=== PATIENT | female | born 1950 | race Two or more races ===

== ENCOUNTER 2020-01-27 07:42 | Inpatient (IN) | payer MEDICARE, MEDICAID ==
[~2020-01-27] VITALS: Ht 154.9 cm; Wt 85.0 kg
[2020-01-27] MEDS ORDERED: SODIUM CHLORIDE 0.9% 1,000 ML IV ONE ×2 (07:48)
[2020-01-27 07:52] VITALS: BP 95/45
[2020-01-27] MEDS ORDERED: ZINC SULFATE 220mg CAP or TAB PO ONE (08:00)
[2020-01-27] MEDS ORDERED: ASCORBIC ACID 500 MG TAB PO ONE (08:00)
[2020-01-27] MEDS ORDERED: cefTRIAXone 1GM/50ML D5W 50 ML IV ONE (08:00)
[2020-01-27 08:30] LABS: Basophils # (auto) 0 10 ^3/uL (0-0.2); Basophils % (auto) 0.2 % (0.0-2.0); Eosinophils # (auto) 0 10 ^3/uL (0-0.8); Hematocrit 40.3 % (36.0-46.0); Hemoglobin 13.2 g/dL (12.2-16.2); Lymphocytes # (auto) 0.6 10 ^3/uL (0.4-5.4); Lymphocytes % (auto) 5.1 % (10.0-50.0); Mean Corpuscular Hemoglobin 28.4 pg (28.0-32.0); Mean Corpuscular Hgb Conc. 32.8 g/dL (32.0-36.0); Mean Corpuscular Volume 86.6 fL (80.0-100.0); Monocytes # (auto) 0.6 10 ^3/uL (0-1.3); Monocytes % (auto) 5.9 % (0.0-12.0); Neutrophils # (auto) 9.7 10 ^3/uL (1.6-8.6); Neutrophils % (auto) 88.8 % (37.0-80.0); Nucleated Red Blood Cells % 0.2 %; Platelet Count (auto) 274 10^3/uL (140-450); Red Blood Cells 4.65 10^6/uL (4.0-5.20); Red Cell Distribution Width 15.7 % (11.8-14.3); White Blood Cell 10.9 10^3/uL (4.4-10.8)
[2020-01-27 08:41] LABS: INR 0.96 (0.9-1.15); Partial Thromboplastin Time 30.7 sec (23.0-31.2)
[2020-01-27 08:43] LABS: Urine Bacteria NONE SEEN /hpf (None Seen); Urine Blood Negative /uL (Negative); Urine Hyaline Cast MANY /lpf (0 - 2); Urine Mucus FEW (None Seen); Urine Specific Gravity 1.024 (1.001-1.035); Urine WBC 4 /hpf (0 - 5)
[2020-01-27 08:46] LABS: Albumin 2.3 g/dL (3.4-5.0); Potassium 3.1 mmol/L (3.5-5.1)
[2020-01-27 08:47] LABS: Lactic Acid w/Reflex 2.9 mmol/L (0.4-2.0)
[2020-01-27 08:55] LABS: BUN/Creatinine Ratio 16.9; Bilirubin, Total 0.9 mg/dL (0.2-1.0); CRP High Sensitivity 18.5 mg/dL (< 0.3); Total Protein 7.2 g/dL (6.4-8.2)
[2020-01-27 11:05] VITALS: BP 116/83
[2020-01-27 13:15] VITALS: BP 94/60
[2020-01-27] MEDS ORDERED: SODIUM CHLORIDE 0.9% 1,000 ML IV SCH (13:26)
[2020-01-27] MEDS ORDERED: SOD CHL 0.9%/ KCL 20MEQ 1,000 ML IV ONE (14:00)
[2020-01-27] MEDS: SOD CHL 0.9%/ KCL 20MEQ 1,000 ML IV SCH ×2 (14:00→23:35)
[2020-01-27 14:03] VITALS: BP 116/83
[2020-01-27 14:56] LABS: Magnesium 2.3 mg/dL (1.6-2.6)
[2020-01-27] MEDS ORDERED: ALBUAER3 IN (15:25)
[2020-01-27] MEDS ORDERED: SULF400T11 PO (15:25)
[2020-01-27] MEDS ORDERED: POTA10TA75 PO (15:25)
[2020-01-27] MEDS ORDERED: SIMV-13 PO (15:25)
[2020-01-27] MEDS ORDERED: FLUT1SPR5 (15:25)
[2020-01-27] MEDS ORDERED: MONT10TA34 PO (15:25)
[2020-01-27] MEDS ORDERED: HCTZ25T PO (15:25)
[2020-01-27] MEDS ORDERED: [UNRECOGNIZED DRUG - CODE] TOP (15:25)
[2020-01-27] MEDS ORDERED: NAP500T PO (15:25)
[2020-01-27] MEDS ORDERED: FURO20TA3 PO (15:25)
[2020-01-27] MEDS ORDERED: CETI10TA80 PO (15:25)
[2020-01-27] MEDS ORDERED: ONDA-155 PO (15:25)
[2020-01-27] MEDS ORDERED: FLU220IH INH (15:25)
[2020-01-27] MEDS ORDERED: HYDR-531 PO (15:25)
[2020-01-27] MEDS ORDERED: OMEP20TA PO (15:25)
[2020-01-27 19:15] VITALS: BP 103/34
[2020-01-27] MEDS: DOXYCYCLINE 100MG/250ML 250 ML IV SCH (22:47)
[2020-01-27 22:52] VITALS: BP 102/57
--- NOTE | 2020-01-27 23:30 | NUR ---
Respiratory note: AT BEDSIDE, PT TRYING TO PULL MASK OFF. REMOVED MASK AND PT WAS NOTED TO HAVE LARGE THICK RED/YELLOW ORAL SECRETIONS. PT CONTINUE TO MAKE A GAGING/COUGHING NOSE AND UNABLE TO ANSWER QUESTIONS, CONFUSED. PT MOUTH SUCTIONED UNTIL MOUTH AND AIRWAY WERE CLEARED. PT RR NOTED TO BE IN THE 40S. RN AND DR. RODRIGUEZ MADE AWARE, ABG ORDERED.
--- NOTE | 2020-01-27 23:51 | NUR ---
Respiratory note: AT BEDSIDE WITH RN. PT ASKING QUESTIONS AND RESPONDING APPROPRIATELY AT THIS TIME. PT NOTED TO HAVE A PRODUCTIVE COUGH, SUCTIONED MODERATE THICK RED/YELLOW SECRETIONS ORALLY. NO RESPIRATORY DISTRESS NOTED, MASK CLEAR OF SECRETIONS. SPO2 NOTED AT 92-93% ON BIPAP WITH 100% FIO2. WILL CONTINUE TO MONITOR.
[2020-01-28] VITALS (12 sets, daily range): BP systolic 81–133; BP diastolic 41–96
[2020-01-28] MEDS: ONDANSETRON HCL 4 MG/2 ML VIAL IV PRN (01:26)
--- NOTE | 2020-01-28 06:00 | NUR ---
Respiratory note: RECEIVED PT FROM [facility] RT ON BIPAP WITH ABOVE STATED SETTINGS. PT WAS TRANSPORTED FROM ER #6 TO JOE WITHOUT INCIDENT. PT IS WEARING SIZE M MASK. NO REDNESS OR SKIN BREAKDOWN NOTED ON PT'S FACE. BIPAP WAS PLUGGED IN TO RED OUTLET. ALARMS ARE SET AND AUDIBLE. PT'S BREATH SOUNDS ARE COARSE/DIMINISHED. PT HAS A STRONG PRODUCTIVE COUGH WITH MODERATE AMOUNT OF CLEAR/YELLOW SECRETIONS. RN AT BEDSIDE ADJUSTING AND HOOKING PT TO MONITOR. WILL CONTINUE TO MONITOR PT.
--- NOTE | 2020-01-28 06:05 | NUR ---
Admit to [facility] admitted to [facility] via gurney on blood bank business manager, and portable 02. Patient transferred to bed, connected to unit monitoring and oxygen, and weighed by bedscale. Patient oriented to Rosangela fish RN, unit, room, bed, and unit policies regarding patient care and visiting hours. All questions and concerns addressed, patient verbalized understanding. PATIENT ARRIVED FROM ER TO JOE. PATIENT PLACED IN RULE OUT COVID ROOM WITH STAFF WEARING APPROPRIATE PPE. PATIENT PLACED ON BIPAP BY RT FIO2 100%. PATIENT A/OX2, ABLE TO NOD YES AND NO TO QUESTIONS. PHYSICAL ASSESSMENT DONE. SMALL OPEN AREA NOTED TO MEDIAL INTERGLUTEAL CLEFT. WILL TAKE PHOTO. IV TO LEFT AND RIGHT WRIST 20G BOTH INTACT AND PATENT.
--- NOTE | 2020-01-28 06:30 | NUR ---
WOUND PHOTO PHOTO TAKEN OF PATIENTS SACRUM. PHOTO FORM FILLED OUT AND PLACED IN WOUND CARE BASKET.
--- NOTE | 2020-01-28 07:20 | NUR ---
CLOSING PATIENT SLEEPING WITH VISIBLE RISE AND FALL OF CHEST NOTED. PATIENT REMAINS ON BIPAP FIO2 100%. CARE ENDORSED TO MARIELENA SIU TO ASSUME CARE OF PATIENT.
--- NOTE | 2020-01-28 08:18 | NUR ---
PATIENTS FAMILY CALLED TRENT CALLED FOR UPDATE, PROVIDED PASSWORD. UPDATED ON PLAN OF CARE AND PATIENTS CURRENT STATUS.ADDRESSED CONCERNS
--- NOTE | 2020-01-28 08:38 | NUR ---
PATIENTS DAUGHTER TRENT CALLED PROVIDED PASSWORD AND UPDATED ON PATIENT STATUS AND PLAN OF CARE
[2020-01-28] MEDS: SOD CHL 0.9%/ KCL 20MEQ 1,000 ML IV SCH (09:20)
[2020-01-28] MEDS: ZINC SULFATE 220mg CAP or TAB PO SCH (09:20)
[2020-01-28] MEDS: DOXYCYCLINE 100MG/250ML 250 ML IV SCH (09:20)
[2020-01-28] MEDS: CHOLECALCIFEROL (VITD3) 1,000UNIT=25mCg TAB PO SCH (09:21)
[2020-01-28] MEDS: ASCORBIC ACID 500 MG TAB PO SCH (09:21)
[2020-01-28] MEDS: DexAMETHasone SOD PHOS 10MG/1ML VIAL INJ IV SCH (09:25)
[2020-01-28] MEDS ORDERED: ENOXAPARIN SOD 40 MG/0.4 ML SYRINGE SC SCH ×2 (10:00→22:00)
--- NOTE | 2020-01-28 10:00 | NUR ---
HELD PO MEDICATIONS PATIENT UNABLE TO TOLERATE REMOVAL OF BIPAP TO SWALLOW PO MEDICATIONS. HELD MEDS AND WILL NOTIFY MD. BIPAP FIO2 REQUIREMENTS REMAIN AT 100%
--- NOTE | 2020-01-28 11:24 | NUR ---
DR ARELLANO AT BEDSIDE DISCUSSED PATIENTS STATUS AND PLAN OF CARE. NEW ORDERS PLACED
[2020-01-28 11:26] LABS: Basophils # (auto) 0 10 ^3/uL (0-0.2); Basophils % (auto) 0.3 % (0.0-2.0); Eosinophils # (auto) 0 10 ^3/uL (0-0.8); Eosinophils % (auto) 0.1 % (0.0-7.0); Hematocrit 37.7 % (36.0-46.0); Lymphocytes # (auto) 0.3 10 ^3/uL (0.4-5.4); Mean Corpuscular Hgb Conc. 31.7 g/dL (32.0-36.0); Mean Corpuscular Volume 88.2 fL (80.0-100.0); Monocytes # (auto) 0.2 10 ^3/uL (0-1.3); Monocytes % (auto) 2.4 % (0.0-12.0); Neutrophils # (auto) 9.1 10 ^3/uL (1.6-8.6); Neutrophils % (auto) 94.2 % (37.0-80.0); Platelet Count (auto) 253 10^3/uL (140-450); Red Blood Cells 4.28 10^6/uL (4.0-5.20); Red Cell Distribution Width 16.2 % (11.8-14.3); White Blood Cell 9.6 10^3/uL (4.4-10.8)
[2020-01-28] MEDS ORDERED: MEROPENEM 1GM IVPB 100 ML IV SCH (11:30)
[2020-01-28] MEDS: LINEZOLID 600MG/300ML 300 ML IV SCH ×2 (11:40→22:03)
[2020-01-28 11:59] LABS: Potassium 3.7 mmol/L (3.5-5.1)
--- NOTE | 2020-01-28 12:01 | NUR ---
RECEIVED CALL PATIENT CONFIRMED COVID POSITIVE, NOTIFIED PRIMARY MD, DR ARELLANO
[2020-01-28 12:13] LABS: Albumin 1.7 g/dL (3.4-5.0); BUN/Creatinine Ratio 25.6; Bilirubin, Total 0.6 mg/dL (0.2-1.0); Magnesium 2.7 mg/dL (1.6-2.6); Total Protein 6.3 g/dL (6.4-8.2)
--- NOTE | 2020-01-28 13:00 | NUR ---
PATIENTS DAUGHTER AUSTIN CALLED FOR UPDATE PROVIDED PASSWORD.
--- NOTE | 2020-01-28 13:15 | NUR ---
SPOKE WITH PATIENTS DAUGHTER TRENT PROVIDED PASSWORD, UPDATED ON NEW LAB RESULTS. DISCUSSED PLAN OF CARE
--- NOTE | 2020-01-28 13:15 | NUR ---
TEMPERER AT BEDSIDE ASSESS SKIN ISSUES. PATIENT REPOSITIONED TO RIGHT SIDE
--- NOTE | 2020-01-28 13:20 | NUR ---
PATIENTS SISTER KISHAN CALLED FOR UPDATE PROVIDED PASSWORD, UPDATED ON CURRENT PLAN OF CARE
--- NOTE | 2020-01-28 13:30 | NUR ---
WOUND CARE NOTE: Wound care in to see patient per wound care request regarding "medial sacral open wound" that are noted present on admission. Bedside nurse took photograph of patient's wound upon admission for reference. Patient is 69 years old female with admitting diagnosis of Suspected CoVid, Bilateral Pna, Confusion. Patient is resting in SDU bed in Rm 263. Patient is on BiPap. Patient is awake and able to follow simple direction. She's in no stated pain at this time and she appears to be in no pain using Saba Seth Faces pain Scale. She's able to assist in turning and repositioning and her Clayton score is 15. Skin/wound assessment done with the assistance of patient's nurse, MARIELENA Dixon. Noted 1x0.5cm open full thickness wound to patient's posterior medial sacrum at intragluteal fold. Wounds is red with no measurable depth, letha wound is bright and dark red non-blanchable, minimal sanguinous drainage or odor noted. Letha care given, applied Z Guard cream and covered medial sacral wound with Opti foam gentle dressing. Patient tolerated well, repositioned patient for comfort facing her Rt side, redistributed pressure points with pillows . RECOMMENDATION: Nursing to continue with BID/PRN dressing change to medial sacral wounds per MD order, Dietary consult, frequent turning and repositioning schedule as condition permits, redistribute pressure points with pillows, frequent letha care/check, keep clean and dry, elevate heels on pillows, continue monitoring by wound care while patient is hospitalized. Addendum: 01/28/20 at 1700 by Gabriela Cade RN Amended: Links added.
[2020-01-28 13:43] LABS: CRP High Sensitivity 22.386 mg/dL (< 0.3)
[2020-01-28] MEDS: MEROPENEM 1GM IVPB 100 ML IV SCH (14:06)
--- NOTE | 2020-01-28 15:21 | NUR ---
Nutrition Assessment Notes Please refer to link for full assessment notes. Est Energy needs: 2127-2124 kcals (17-20 kcal/kgBW) Est Protein needs: 94-117 gms/day (1.2-1.5 gm/kgBW) Will continue to monitor and reassess prn. Addendum: 01/28/20 at [address] Amended: Links added.
[2020-01-28] MEDS ORDERED: FUROSEMIDE 20 MG/2 ML VIAL IV ONE (16:00)
[2020-01-28] MEDS ORDERED: DEXTROSE (50%) 50ML SYRG IV PRN (16:00)
[2020-01-28] MEDS: InsuLIN REG 1unit/0.01ml Soln (100units/ml) SC SCH (17:00)
[2020-01-28] MEDS ORDERED: methylPREDNISolone SOD SUCC 40 MG/ML VL IV ONE (17:30)
[2020-01-28] MEDS ORDERED: ACETAMINOPHEN 650 mg PER 20 mL UD PO ONE (17:30)
[2020-01-28] MEDS ORDERED: diphenhdrAMINE HCL 50 MG/1 ML VL IV ONE (17:30)
--- NOTE | 2020-01-28 17:52 | NUR ---
CONSENT FOR REMDESIVIR OBTAINED SPOKE WITH PATIENTS DAUGHTER TRENT, 2 RNS WITNESSED TELEPHONE CONSENT. PAPERWORK FAXED TO PHARMACY
[2020-01-28] MEDS ORDERED: TOCILIZUMAB 400 MG in SODIUM CHL 0.9% 80 ML IV ONE (18:00)
[2020-01-28] MEDS: ACCU-CHEK COMFORT CURVE STRIP VI SCH ×2 (18:23→21:17)
--- NOTE | 2020-01-28 19:15 | NUR ---
PATIENT DAUGHTER AUSTIN AND EMERITA CALLED FOR UPDATE PROVIDED PASSWORD. UPDATED ON PLAN OF CARE AND STATUS.
--- NOTE | 2020-01-28 19:24 | NUR ---
Opening Shift Note Assumed care of patient, awake but confused, alert to self and place only. Bed is in lowest position and locked. Call light within reach. Board updated. No S/S of distress/SOB or pain. Patient on BiPAP / on 100% FiO2. Patient attached to continuous heart monitor and pulse oximeter. Instructed on POC and to call for assist PRN, will continue to monitor for changes Q1hr and PRN.
[2020-01-28] MEDS ORDERED: REMDESIVIR 200 MG in NS 210ml LOADING DOSE ADULT IV ONE (20:00)
--- NOTE | 2020-01-28 20:26 | NUR ---
Remdesevir 100 mg started at this time. Consent has been signed by family members and witnessed by day shift RN Destiny. ALT level is 33, LDH is elevated (141) but trending down from previous level (151). Patient's GFR is 79. Medication administered starting now.
[2020-01-28] MEDS ORDERED: InsuLIN REG 1unit/0.01ml Soln (100units/ml) SC SCH (22:00)
[2020-01-28] MEDS ORDERED: ENOXAPARIN SOD 80 MG/0.8ML SYRINGE SC SCH (22:00)
--- NOTE | 2020-01-28 23:10 | NUR ---
RT Arnulfo rounded on patient and found BiPAP mask raised above most of mouth. Patient had tried to move it up for more comfortable fit. Mask now repositioned correctly. Oxygen saturation increased fro 89% to 92%. Will continue to assess.
[2020-01-29] VITALS (12 sets, daily range): BP systolic 116–160; BP diastolic 64–80
--- NOTE | 2020-01-29 01:15 | NUR ---
Repositioned patient's BiPAP after patient's oxygen began decreasign to 83%. Oxygen saturation is now at 91% on 100% FiO2. Will continue to assess.
[2020-01-29] MEDS: MEROPENEM 1GM IVPB 100 ML IV SCH ×2 (01:36→13:41)
--- NOTE | 2020-01-29 04:05 | NUR ---
Patient repositioned for pressure redistribution and comfort. Temperature taken: 97.0 axillary. Assessed BiPAP mask seal and found it correctly positioned still on patient's face. Oxygen saturation: 92% on 100% FiO2. Will continue to assess.
[2020-01-29 04:46] LABS: Albumin 1.8 g/dL (3.4-5.0); Anion Gap 5 (5-15); Blood Urea Nitrogen 27 mg/dL (7-18); Carbon Dioxide 29 mmol/L (21-32); Chloride 111 mmol/L (98-107); Glucose 157 mg/dL (74-106); Potassium 3.6 mmol/L (3.5-5.1); Sodium 145 mmol/L (136-145)
[2020-01-29 04:56] LABS: Alanine Aminotransferase 31 U/L (13-56); Alkaline Phosphatase 139 U/L (45-117); Aspartate Aminotransferase 55 U/L (15-37); BUN/Creatinine Ratio 29.3; Bilirubin, Total 0.4 mg/dL (0.2-1.0); GFR African American 78 mL/min; GFR Non-African American 64 mL/min; Total Protein 6.7 g/dL (6.4-8.2)
[2020-01-29 05:07] LABS: CRP High Sensitivity > 19.0 mg/dL (< 0.3)
--- NOTE | 2020-01-29 06:19 | NUR ---
Respiratory note: RECEIVED PATIENT ON V60 BIPAP FITTED WITH A MEDIUM FULL FACE MASK AND BEING VENTILATED WITH THE CHARTED SETTINGS. SPO2 96%, LUNG SOUNDS DIM T/O. PATIENT TOLERATING BIPAP WELL, NO REDNESS OR BREAKDOWN NOTED FROM MASK. BIPAP PLUGGED INTO RED OUTLET AND ALL ALARMS ARE SET AND AUDIBLE. WILL CONTINUE TO ASSESS PATIENT WELL BIPAP FUNCTION.
[2020-01-29] MEDS: ACCU-CHEK COMFORT CURVE STRIP VI SCH ×4 (06:24→20:22)
[2020-01-29] MEDS: InsuLIN REG 1unit/0.01ml Soln (100units/ml) SC SCH (07:00)
--- NOTE | 2020-01-29 07:11 | NUR ---
REPORT RECEIVED FROM BIOCHEMISTRY SPECIALIST RN
--- NOTE | 2020-01-29 07:24 | NUR ---
Patient desaturated to 84% on 100% FiO2 BiPAP. Repositioned mask and moved patient up in bed with help of MARIELENA Richmond. Oxygen saturation has improved to 91%. Care endorsed to MARIELENA Richmond.
[2020-01-29] MEDS ORDERED: diphenhdrAMINE HCL 50 MG/1 ML VL IV ONE (08:00)
[2020-01-29] MEDS ORDERED: ACETAMINOPHEN 650 mg PER 20 mL UD PO ONE (08:00)
[2020-01-29] MEDS ORDERED: methylPREDNISolone SOD SUCC 40 MG/ML VL IV ONE (08:00)
[2020-01-29] MEDS ORDERED: TOCILIZUMAB 400 MG in SODIUM CHL 0.9% 80 ML IV ONE (08:30)
[2020-01-29] MEDS: ZINC SULFATE 220mg CAP or TAB PO SCH (10:00)
[2020-01-29] MEDS: ASCORBIC ACID 500 MG TAB PO SCH (10:00)
[2020-01-29] MEDS: CHOLECALCIFEROL (VITD3) 1,000UNIT=25mCg TAB PO SCH (10:00)
--- NOTE | 2020-01-29 10:01 | NUR ---
AM ORAL MEDICATIONS ATTEMPTED TO GIVE PATIENT ORAL MEDICATIONS. PATIENT COUGHED UPON ADMINISTRATION. MEDS HELD DUE TO SAFETY
[2020-01-29] MEDS: ENOXAPARIN SOD 80 MG/0.8ML SYRINGE SC SCH ×3 (10:04→20:59)
--- NOTE | 2020-01-29 10:10 | NUR ---
DECADRON UNABLE TO ADMINISTER PER PHARMACY MEDICATION IS ON BACK ORDER
[2020-01-29] MEDS: THIAMINE 100mg/ml INJ (200mg/2ml VIAL) IV SCH (10:15)
[2020-01-29] MEDS: FUROSEMIDE 20 MG/2 ML VIAL IV SCH (10:15)
[2020-01-29] MEDS: DexAMETHasone SOD PHOS 10MG/1ML VIAL INJ IV SCH (10:15)
[2020-01-29] MEDS: LINEZOLID 600MG/300ML 300 ML IV SCH ×2 (10:16→21:50)
--- NOTE | 2020-01-29 10:39 | NUR ---
DR. ARELLANO AT BEDSIDE
--- NOTE | 2020-01-29 11:39 | NUR ---
FAMILY UPDATED ON PATIENT STATUS (TRENT) DAUGHTER. ALL QUESTIONS AND CONCERNS ADDRESSED AT THIS TIME
--- NOTE | 2020-01-29 12:06 | NUR ---
PATIENT RESTING NO S/S OF DISTRESS NOTED
--- NOTE | 2020-01-29 20:00 | NUR ---
SHIFT OPENING NOTE RECEIVED PATIENT LAYING IN BED WITH EYES CLOSED ON BIPAP. SETTINGS 16/10, 100% FI02 WITH POX 100%. TOLERATED IT WELL. ALERT AND ORIENTED X3. PILOT STATION. FOLLOWS COMMANDS. PALOMO CATH DRAINING YELLOW URINE TO GRAVITY. PHYSICAL ASSESSMENT COMPLETED, SEE INTERVENTIONS. INSTRUCTED ON POC AND TO CALL FOR ASSIST NEEDED. BED IS IN HE LOWEST POSITION WITH SIDE RAILS UP X2, CALL LIGHT IS WITHIN REACH.
[2020-01-29] MEDS: REMDESIVIR 100mg in NS 230ml DAILYx4DAYS (NO VENT) IV SCH (20:20)
[2020-01-30] VITALS: BP 140/58
[2020-01-30 02:10] VITALS: BP 140/58
[2020-01-30] MEDS: MEROPENEM 1GM IVPB 100 ML IV SCH ×2 (02:34→15:42)
[2020-01-30 04:00] VITALS: BP 142/70
[2020-01-30 04:23] LABS: Albumin 1.8 g/dL (3.4-5.0); Calcium 8.2 mg/dL (8.5-10.1); Potassium 3.3 mmol/L (3.5-5.1)
[2020-01-30 04:27] LABS: Bilirubin, Total 0.4 mg/dL (0.2-1.0); Total Protein 6.5 g/dL (6.4-8.2)
--- NOTE | 2020-01-30 05:15 | NUR ---
MORNING HYGIENE CARE PATIENT NOTED TO HAVE AN EPISODE OF BOWEL INCONTINENCE. PERICARE PERFORMED WITH SOAPY WATER AND WASHCLOTHES. PARTIAL LINEN CHANGED. ORAL CARE DONE. LOTS OF WHITE FROTH SECRETIONS COUGHED UP BY PATIENT AND SUCTIONED OUT OF MOUTH. PLACED BACK ON BIPAP. REPOSITIONED FOR COMFORT. TOLERATED IT WELL.
[2020-01-30] MEDS: ACCU-CHEK COMFORT CURVE STRIP VI SCH ×3 (05:36→21:19)
--- NOTE | 2020-01-30 06:23 | NUR ---
Respiratory note: PT TAKEN OFF OF BIPAP, AND PLACED ON A 15L NRB. PT TOLERATED CHANGE WELL. SPO2 91%, HR 52, RR 20, BS DIMINISHED BILATERALLY. RN MADE AWARE. WILL CONTINUE TO MONITOR PT.
--- NOTE | 2020-01-30 07:20 | NUR ---
END OF SHIFT REPORT GIVEN AND CARE ENDORSED TO CARINA PEGUERO.
[2020-01-30 10:14] LABS: Basophils # (auto) 0 10 ^3/uL (0-0.2); Basophils % (auto) 0.1 % (0.0-2.0); Eosinophils # (auto) 0 10 ^3/uL (0-0.8); Hematocrit 41.8 % (36.0-46.0); Hemoglobin 13.5 g/dL (12.2-16.2); Lymphocytes # (auto) 0.6 10 ^3/uL (0.4-5.4); Lymphocytes % (auto) 5.6 % (10.0-50.0); Mean Corpuscular Hemoglobin 28.3 pg (28.0-32.0); Mean Corpuscular Hgb Conc. 32.3 g/dL (32.0-36.0); Mean Corpuscular Volume 87.6 fL (80.0-100.0); Monocytes # (auto) 0.9 10 ^3/uL (0-1.3); Neutrophils # (auto) 8.7 10 ^3/uL (1.6-8.6); Neutrophils % (auto) 85.3 % (37.0-80.0); Platelet Count (auto) 432 10^3/uL (140-450); Red Blood Cells 4.77 10^6/uL (4.0-5.20); Red Cell Distribution Width 15.7 % (11.8-14.3); White Blood Cell 10.2 10^3/uL (4.4-10.8)
--- NOTE | 2020-01-30 11:10 | NUR ---
Nutrition Followup Note Wt 74.2kg Pt is COVID positive in the covid wing. Pt currently NPO with no diet order. Per RN pt is not tolerating anything by mouth and likely won't tolerate a TF in current condition. Consider TPN if GI is not accessible per MD approval. Est Energy needs: 5461-4670 kcals (17-20 kcal/kgBW) Est Protein needs: 94-117 gms/day (1.2-1.5 gm/kgBW) Will continue to monitor and reassess prn. Labs: BUN 41H, GLUC 126H, Ca 8.2L, Alb 1.8L BM: pt with 3 BMs 8/3 per RN note Skin: BS 15 mod risk, full details in health care administrator note. PES: 1) Increased nutrient needs r/t pt with no PO intake aeb pt currently NPO with no diet order 2) Obesity r/t energy intake in excess of energy needs aeb 164% IBW and BMI of 32.6 kg/m2 3) Altered nutrition related lab values current/chronic medical condition aeb hypokalemia, elev RFTs, low GFR, hyperglycemia, hypocalcemia, severe hypoalbuminemia Comments: Will continue to monitor PO status, skin status, pertinent labs and weight trends. 1) Continue to carefully monitor pt NPO status 2) If pt remains NPO for the next 48 hours, consider EN nutrition support Osmolite 1.2 @ 50ml/hr goal rate 3) Gradually advance pt to oral 2g Sodium diet when medically feasible and as tolerated 4) If albumin continues trending down with improved RFTs, consider Prostat 1 pkt bid 5) Continue current plan of care Expected Outcomes/Goals: Pt to advance to an oral diet Pt labs to improve f/u 2-3 days
[2020-01-30] MEDS: LINEZOLID 600MG/300ML 300 ML IV SCH ×2 (11:56→22:23)
[2020-01-30] MEDS: ZINC SULFATE 220mg CAP or TAB PO SCH (11:56)
[2020-01-30] MEDS: ASCORBIC ACID 500 MG TAB PO SCH (11:57)
[2020-01-30] MEDS: CHOLECALCIFEROL (VITD3) 1,000UNIT=25mCg TAB PO SCH (11:57)
[2020-01-30] MEDS: FUROSEMIDE 20 MG/2 ML VIAL IV SCH (11:58)
[2020-01-30] MEDS: THIAMINE 100mg/ml INJ (200mg/2ml VIAL) IV SCH (11:59)
--- NOTE | 2020-01-30 12:30 | NUR ---
DR ARELLANO VISITS - ORDERS RECEIVED.
[2020-01-30] MEDS: ENOXAPARIN SOD 80 MG/0.8ML SYRINGE SC SCH ×2 (12:54→21:19)
[2020-01-30] MEDS: DexAMETHasone SOD PHOS 10MG/1ML VIAL INJ IV SCH (12:54)
[2020-01-30] MEDS ORDERED: TPN PER PHARMACY 0 ML IV SCH (13:00)
--- NOTE | 2020-01-30 13:00 | NUR ---
CALL PLACED TO TRENT RE: PICC LINE CONSENT.
[2020-01-30] MEDS ORDERED: POTASSIUM CHL 20MEQ/100ML 100 ML IV ONE (13:30)
[2020-01-30 14:00] VITALS: BP 142/70
--- NOTE | 2020-01-30 16:10 | NUR ---
SPOKE WITH TRENT AND OBTAINED CONSENT FOR PICC LINE PLACEMENT, ALL RISKS AND BENEFITS EXPLAINED.
[2020-01-30 16:29] LABS: INR 1.13 (0.9-1.15)
[2020-01-30] MEDS ORDERED: POTASSIUM EFFERVESENT TAB 25 MEQ PO ONE (16:45)
--- NOTE | 2020-01-30 17:00 | NUR ---
DR PICKETT VISITS - NO NEW ORDERS RECEIVED.
--- NOTE | 2020-01-30 18:46 | NUR ---
Respiratory note: RECEIVED PT FROM DAY SHIFT RT ON 15L NRB. HR 74, RR 28, POX 90%. BREATH SOUNDS ARE CLEAR/DIMINISHED. NO WOB NOTED. WILL CONTINUE TO MONITOR PT.
[2020-01-30 20:00] VITALS: BP 154/86
[2020-01-30] MEDS ORDERED: D5W IV NR (20:00)
[2020-01-30] MEDS ORDERED: AMINO ACID INFUSION IV NR (20:00)
--- NOTE | 2020-01-30 20:00 | NUR ---
SHIFT OPENING NOTE RECEIVED PATIENT LAYING IN BED ON NRB 15L, POX 94%. ALERT AND ORIENTED X4. PRAIRIE BAND WITH HEARING AIDS ON. FOLLOWS COMMANDS. PALOMO CATH DRAINING YELLOW URINE TO GRAVITY. PHYSICAL ASSESSMENT COMPLETED, SEE INTERVENTIONS. INSTRUCTED ON POC AND TO CALL FOR ASSIST NEEDED. BED IS IN HE LOWEST POSITION WITH SIDE RAILS UP X2, CALL LIGHT IS WITHIN REACH.
--- NOTE | 2020-01-30 21:00 | NUR ---
BM INCONTINENT OF BM. RUBIN CARE PERFORMED WITH WARM WATER AND SOAPY WASH CLOTHES. GOWN CHANGED. PARTIAL LINEN CHANGED. PATIENT REPOSITIONED FOR COMFORT. TOLERATED IT WELL.
--- NOTE | 2020-01-30 21:14 | NUR ---
PICC line placement Patient educated on need for PICC line placement. All risks and benefits explained and all questions and concerns addressed prior to procedure. Noted past medical history and allergies with no contraindications. INR and Plt counts within acceptable range. fr PICC line inserted via BASILIC vein using [employer] US and Tip Location System. Sterile technique with maximum barrier precautions utilized. Blood return obtained from each of 2 lumens and each flushed easily with NS using proper technique. PICC secured with Stat-lock; biodisc and occlusive dressing applied. Stat portable chest x-ray obtained for PICC tip placement. *Baseline Arm Circumference 27CM. PICC lot #[id number]. INTERNAL LENGTH 46CM EXTERNAL LENGTH 0CM
[2020-01-30] MEDS ORDERED: LIDOCAINE 1% (LOCAL ANESTH.) PF 5ml SDV ID ONE (21:15)
[2020-01-30] MEDS: REMDESIVIR 100mg in NS 230ml DAILYx4DAYS (NO VENT) IV SCH (21:18)
--- NOTE | 2020-01-30 21:18 | NUR ---
OK to use PICC line Xray completed. OK to use PICC line by RADIOLOGIST.
[2020-01-30] MEDS: SODIUM CHLOR 0.9% PF (SALINE LOCK) 10ML VIAL/SYR IV SCH (22:24)
[2020-01-31] VITALS (7 sets, daily range): BP systolic 143–161; BP diastolic 80–92
[2020-01-31] MEDS: MEROPENEM 1GM IVPB 100 ML IV SCH ×4 (00:21→23:01)
--- NOTE | 2020-01-31 05:30 | NUR ---
MORNING HYGIENE CARE PATIENT NOTED TO HAVE HAD AN EPISODE OF BOWEL INCONTINENCE. FULL BED BATH PERFORMED WITH WET SOAPY WASH CLOTHES AND CHG WIPES. GOWN CHANGED. PARTIAL LINEN CHANGE. PATIENT REPOSITIONED FOR COMFORT. TOLERATED IT WELL.
[2020-01-31] MEDS: ACCU-CHEK COMFORT CURVE STRIP VI SCH ×4 (06:01→20:35)
--- NOTE | 2020-01-31 06:38 | NUR ---
Respiratory note: ASSESSED PT AT THIS TIME, NO DISTRESS NOTED, PT WEARING 15L NRB, PULSE OX SAT 96%, HR 70, RR 20
--- NOTE | 2020-01-31 07:10 | NUR ---
END OF SHIFT REPORT GIVEN AND CARE ENDORSED TO BRENDA PEGUERO.
[2020-01-31 07:11] LABS: Basophils # (auto) 0 10 ^3/uL (0-0.2); Basophils % (auto) 0.6 % (0.0-2.0); Eosinophils # (auto) 0 10 ^3/uL (0-0.8); Hematocrit 41.2 % (36.0-46.0); Hemoglobin 13.1 g/dL (12.2-16.2); Lymphocytes # (auto) 0.4 10 ^3/uL (0.4-5.4); Lymphocytes % (auto) 6.4 % (10.0-50.0); Mean Corpuscular Hemoglobin 27.6 pg (28.0-32.0); Mean Corpuscular Hgb Conc. 31.7 g/dL (32.0-36.0); Monocytes # (auto) 0.5 10 ^3/uL (0-1.3); Monocytes % (auto) 8.6 % (0.0-12.0); Neutrophils # (auto) 4.9 10 ^3/uL (1.6-8.6); Neutrophils % (auto) 84.4 % (37.0-80.0); Platelet Count (auto) 407 10^3/uL (140-450); Red Blood Cells 4.74 10^6/uL (4.0-5.20); Red Cell Distribution Width 15.7 % (11.8-14.3); White Blood Cell 5.9 10^3/uL (4.4-10.8)
[2020-01-31 07:31] LABS: Potassium 3.3 mmol/L (3.5-5.1)
[2020-01-31 07:42] LABS: Albumin 2.1 g/dL (3.4-5.0); BUN/Creatinine Ratio 55.3; Bilirubin, Total 0.6 mg/dL (0.2-1.0); Calcium 8.3 mg/dL (8.5-10.1); Magnesium 2.8 mg/dL (1.6-2.6); Phosphorus 2.8 mg/dL (2.5-4.90); Pre Albumin 16.7 mg/dL (20.0-40.0); Total Protein 6.3 g/dL (6.4-8.2)
[2020-01-31] MEDS ORDERED: D5W 5% 1,000 ML IV ONE (08:15)
--- NOTE | 2020-01-31 08:20 | NUR ---
ASSESSMENT COMPLETED, SEE INTERVENTIONS. AWAKE, A/O X4. HARD OF HEARING AND DELAYED VERBAL RESPONSE. DENIES ANY PAIN. HR SR WITH SBP 150'S. ON 15 LPM 02 VIA NON-REBREATHER WITH SPO2 94-96%. RR HIGH 2O'S WITH PRODUCTIVE COUGH WHITE THICK SPUTUM ABLE TO USE TISSUE TO EXPECTORATE INTO. INCREASED SOB WHEN LYING FLAT. HOB HIGH FOWLERS FOR EASE IN BREATHING AFTER SELF TURNING/REPOSITION. ENCOURAGED PRONE POSITION BUT REFUSED AT THIS TIME. LEFT BUTTOCKS HAS MACERATION AND PRESSURE AREA TO SACRUM WITH OPTIFOAM IN PLACE. CALL LIGHT IN REACH.
[2020-01-31] MEDS: POTASSIUM CHL 20MEQ/100ML 100 ML IV SCH ×2 (08:23→09:37)
[2020-01-31] MEDS ORDERED: POTASSIUM CHL 20MEQ/100ML 100 ML IV SCH (08:30)
[2020-01-31] MEDS: LINEZOLID 600MG/300ML 300 ML IV SCH ×2 (09:37→20:57)
[2020-01-31] MEDS: DexAMETHasone SOD PHOS 10MG/1ML VIAL INJ IV SCH (09:38)
[2020-01-31] MEDS: SODIUM CHLOR 0.9% PF (SALINE LOCK) 10ML VIAL/SYR IV SCH ×2 (09:38→19:57)
[2020-01-31] MEDS: POTASSIUM EFFERVESENT TAB 25 MEQ PO SCH (09:39)
[2020-01-31] MEDS: ASCORBIC ACID 500 MG TAB PO SCH (09:39)
[2020-01-31] MEDS: THIAMINE 100mg/ml INJ (200mg/2ml VIAL) IV SCH (09:39)
[2020-01-31] MEDS: ZINC SULFATE 220mg CAP or TAB PO SCH (09:39)
[2020-01-31] MEDS: CHOLECALCIFEROL (VITD3) 1,000UNIT=25mCg TAB PO SCH (09:40)
[2020-01-31] MEDS ORDERED: DEXTROSE (50%) 50ML SYRG IV PRN (10:00)
[2020-01-31] MEDS ORDERED: ENOXAPARIN SOD 80 MG/0.8ML SYRINGE SC SCH (10:00)
--- NOTE | 2020-01-31 10:45 | NUR ---
DR ARELLANO AT BEDSIDE, AWARE IVF GOING ORDERED AND ORDERED TO STOP THEM DUE TO CLINIMIX GOING AT 50 ML/HR. IVF ORDER STOPPED. VERIFIED LASIX ORDER AND RN WILL GIVE IT NEXT TIME RN GOES INTO ROOM TO ASSESS OR WHEN PATIENT CALLS. DR AWARE COUGHING EXCESSIVELY. DR ALSO AWARE NO INTUBATION ORDER IN MEDITECH ORDERS BUT ORDER FOR DNR IN CHART AND DR STATED SHE WILL CHANGE IT IN MEDITECH ORDERS.
[2020-01-31] MEDS: FUROSEMIDE 20 MG/2 ML VIAL IV SCH (11:26)
--- NOTE | 2020-01-31 11:41 | NUR ---
SPOKE WITH DTSami AVILA, HAD PASSWORD AND UPDATED ON PLAN OF CARE WITH ALL QUESTIONS ADDRESSED.
[2020-01-31] MEDS: guaiFENesin-DM 100/10mg/5ml SYR PO SCH ×2 (14:47→18:48)
--- NOTE | 2020-01-31 15:30 | NUR ---
SPOKE WITH DAKSHA ROMERO UPDATED ON POC AFTER PASSWORD OBTAINED. ALL QUESTIONS ADDRESSED
--- NOTE | 2020-01-31 16:30 | NUR ---
DR FUNG AT BEDSIDE
--- NOTE | 2020-01-31 16:59 | NUR ---
SPOKE WITH DR TIA ESPINAL SBP HIGH 150'S TO 160 THIS SHIFT. NEW ORDER FOR AMLODIPINE 10 MG PO DAILY FIRST DOSE NOW.
[2020-01-31] MEDS: amLODIPine BESYLATE 5 MG TAB PO SCH (18:00)
[2020-01-31] MEDS: REMDESIVIR 100mg in NS 230ml DAILYx4DAYS (NO VENT) IV SCH (19:56)
[2020-01-31] MEDS ORDERED: POTASSIUM PHOSPHATE IV NR ×8 (20:00)
[2020-01-31] MEDS ORDERED: [UNRECOGNIZED DRUG - OTHER] IV NR ×8 (20:00)
[2020-01-31] MEDS ORDERED: POTASSIUM CHLORIDE IV NR ×8 (20:00)
[2020-01-31] MEDS ORDERED: FAT EMULSION IV NR ×8 (20:00)
--- NOTE | 2020-01-31 20:00 | NUR ---
SHIFT OPENING NOTE RECEIVED PATIENT LAYING IN BED ON NRB 15L, POX 94%. ALERT AND ORIENTED X4. PICAYUNE WITH HEARING AIDS ON. FOLLOWS COMMANDS. PALOMO CATH DRAINING YELLOW URINE TO GRAVITY. PHYSICAL ASSESSMENT COMPLETED, SEE INTERVENTIONS. INSTRUCTED ON POC AND TO CALL FOR ASSIST NEEDED. BED IS IN HE LOWEST POSITION WITH SIDE RAILS UP X2, CALL LIGHT IS WITHIN REACH.
[2020-01-31] MEDS: ENOXAPARIN SOD 80 MG/0.8ML SYRINGE SC SCH (20:35)
[2020-02-01] VITALS: BP 153/89
--- NOTE | 2020-02-01 00:45 | NUR ---
ROUNDS PATIENT IS QUIETLY LAYING IN BED WITH EYES CLOSED. NO DISTRESS OR PAIN NOTED. REMAINS ON NRB 15L, POX 92%. WILL CONTINUE TO CLOSELY MONITOR.
[2020-02-01] MEDS: guaiFENesin-DM 100/10mg/5ml SYR PO SCH ×4 (02:00→17:08)
[2020-02-01 04:00] VITALS: BP 133/77
[2020-02-01] MEDS: ACCU-CHEK COMFORT CURVE STRIP VI SCH ×4 (05:15→22:03)
[2020-02-01] MEDS: MEROPENEM 1GM IVPB 100 ML IV SCH ×3 (05:15→22:02)
[2020-02-01 05:26] LABS: Albumin 2.2 g/dL (3.4-5.0); Calcium 7.8 mg/dL (8.5-10.1); Magnesium 2.2 mg/dL (1.6-2.6); Potassium 3.5 mmol/L (3.5-5.1)
[2020-02-01 05:30] LABS: BUN/Creatinine Ratio 40.6; Bilirubin, Total 0.7 mg/dL (0.2-1.0); Total Protein 6.2 g/dL (6.4-8.2)
--- NOTE | 2020-02-01 06:00 | NUR ---
MORNING HYGIENE CARE FULL BED BATH PERFORMED USING CHG WIPES AND WET SOAPY WASH CLOTHES. PATIENT HAD AN EPISODE OF BOWEL INCONTINENCE. RUBIN CARE PERFORMED. Z-GUARD PLACED ON BUTTOCK AND SACRUM AREA. GOWN CHANGED. PARTIAL LINEN CHANGED. PATIENT REPOSITIONED FOR COMFORT. TOLERATED IT WELL.
--- NOTE | 2020-02-01 06:47 | NUR ---
Respiratory note: ASSESSED PT AT THIS TIME, NO DISTRESS NOTED, PT WEARING 15L NRB, PULSE OX SAT 94%, HR 73, RR 20
[2020-02-01 07:45] VITALS: BP 149/74
[2020-02-01] MEDS: DexAMETHasone SOD PHOS 10MG/1ML VIAL INJ IV SCH (09:23)
[2020-02-01] MEDS: THIAMINE 100mg/ml INJ (200mg/2ml VIAL) IV SCH (09:23)
[2020-02-01] MEDS: FUROSEMIDE 20 MG/2 ML VIAL IV SCH (09:24)
[2020-02-01] MEDS: POTASSIUM EFFERVESENT TAB 25 MEQ PO SCH (09:26)
[2020-02-01] MEDS: LINEZOLID 600MG/300ML 300 ML IV SCH (09:26)
[2020-02-01] MEDS: SODIUM CHLOR 0.9% PF (SALINE LOCK) 10ML VIAL/SYR IV SCH ×2 (09:26→22:03)
[2020-02-01] MEDS: ZINC SULFATE 220mg CAP or TAB PO SCH (09:26)
[2020-02-01] MEDS: CHOLECALCIFEROL (VITD3) 1,000UNIT=25mCg TAB PO SCH (09:27)
[2020-02-01] MEDS: amLODIPine BESYLATE 5 MG TAB PO SCH (09:27)
[2020-02-01] MEDS: ASCORBIC ACID 500 MG TAB PO SCH (09:28)
[2020-02-01] MEDS ORDERED: POTASSIUM PHOSP 22MEQ(15MMOLE) in NS 100 ML IV ONE (10:00)
[2020-02-01] MEDS: ENOXAPARIN SOD 80 MG/0.8ML SYRINGE SC SCH ×2 (10:47→22:03)
--- NOTE | 2020-02-01 11:34 | NUR ---
MD ORDER ONLY ORDER GIVEN IS TO DOWNGRADE TO TELE, PER MD CALLOWAY.
[2020-02-01 11:50] VITALS: BP 106/74
--- NOTE | 2020-02-01 12:00 | NUR ---
Nutrition Followup Note Wt 74.2kg Pt is COVID positive in the covid wing. Pt currently NPO with PN support @ 49 ml/hr providing 1150 kcals and 50 gm proteins 950 NCP. pt with inadequate PN support as it meets 73-86% kcals and 42-53% proteins Est Energy needs: 2354-1680 kcals (17-20 kcal/kgBW), Est Protein needs: 94-117 gms/day (1.2-1.5 gm/kgBW). Will continue to monitor and reassess prn. Labs: BUN 28 H, CA 7.8 L, ALB 2.2 L BM: pt with 4 BM yesterday per RN note Skin: BS 15 mod risk, full details in director long term care note. PES: 1) Increased nutrient needs r/t pt with no PO intake aeb pt currently NPO with no diet order 2) Obesity r/t energy intake in excess of energy needs aeb 164% IBW and BMI of 32.6 kg/m2 3) Altered nutrition related lab values current/chronic medical condition aeb hypokalemia, elev RFTs, low GFR, hyperglycemia, hypocalcemia, severe hypoalbuminemia Comments: Will continue to monitor NPO status, PN tolerance skin status, pertinent labs and weight trends. F/u high 2-3 days 1) Advance PN support to meet > 75% of needs. 2) advance diet as medically feasible. 3) Continue current plan of care
--- NOTE | 2020-02-01 14:28 | NUR ---
ENDORSED CARE PT TRANSFERRED TO ROOM 240B WITH MARIELENA MORALES. NO DISTRESS NOTED BREATHING EVEN AND UNLABORED AND CONNECTED TO TELE MONITOR.
--- NOTE | 2020-02-01 14:58 | NUR ---
assessment Patient is a 69 year old female who is alert and oriented and in JOE on 15L non rebreather. Per patients daughter Tiffany prior to admission patient lived home with her family and needed assistance. Per Tiffany family helps patient when needed. Per Tfifany patient will return home with her on discharge until she is recovered. Patient has a cane for home use. I informed Tiffany I will continue to monitor patient and follow up as appropriate. I informed Tiffany patients post discharge needs to be determined closer to discharge. Tiffany verbalized understanding and agreed to discharge plan home with her. Addendum: 02/01/20 at 1513 by Helen MILAN Amended: Links added.
--- NOTE | 2020-02-01 15:40 | NUR ---
Received pt to room 240 B, pt is AAOX4, pt has peña draining to gravity clear yellow urine, rt upper arm picc line double lumen, TPN running at 49 ml/hr, pt has the non rebreather at 15 lit, pt has a skin tear to her intergluteal fold, dark coloration to left buttocks, applied z-guard cream, turned and reposition pt. Call light with in reach, pt denies any pain or discomfort at this time, bed alrm on, will continue to monitor pt.
[2020-02-01 17:00] VITALS: BP 113/51
[2020-02-01] MEDS ORDERED: FUROSEMIDE 20 MG/2 ML VIAL IV ONE (18:15)
[2020-02-01] MEDS ORDERED: POTASSIUM PHOSPHATE IV NR ×8 (20:00)
[2020-02-01] MEDS ORDERED: FAT EMULSION IV NR ×8 (20:00)
[2020-02-01] MEDS ORDERED: [UNRECOGNIZED DRUG - OTHER] IV NR ×8 (20:00)
[2020-02-01] MEDS ORDERED: POTASSIUM CHLORIDE IV NR ×8 (20:00)
--- NOTE | 2020-02-01 20:00 | NUR ---
open note assumed care of pt, upon entering room pt awake alert and oriented. pt on 15L non rebreather breathing is shallow but pt saturation 93%. pt oriented to this nurse, updated on plan of care. pt denies any pain. pt daughter called, this nurse gave pt cell phone to pt and she replied she'll call her daughter later when she isnt so tired. pt bed locked, low and 2x rails up. call light in reach this nurse to round q1hr and prn.
[2020-02-01] MEDS: REMDESIVIR 100mg in NS 230ml DAILYx4DAYS (NO VENT) IV SCH (20:38)
[2020-02-01 21:57] VITALS: BP 130/95
[2020-02-02] MEDS: LINEZOLID 600MG/300ML 300 ML IV SCH ×3 (00:40→23:43)
[2020-02-02] MEDS: guaiFENesin-DM 100/10mg/5ml SYR PO SCH ×5 (02:29→19:00)
--- NOTE | 2020-02-02 04:25 | NUR ---
pt had small BM, vicki care performed, z guard applied to vicki area and sacral optifoam applied. pt tolerated well. total linen change performed.
[2020-02-02 05:00] VITALS: BP 117/52
[2020-02-02] MEDS: MEROPENEM 1GM IVPB 100 ML IV SCH ×3 (06:22→21:07)
[2020-02-02] MEDS: ACCU-CHEK COMFORT CURVE STRIP VI SCH ×4 (06:27→22:30)
--- NOTE | 2020-02-02 06:36 | NUR ---
Respiratory note: ASSESSED PT AT THIS TIME, NO DISTRESS NOTED, PT WEARING 15L NRB, PULSE OX SAT 92%, HR 93, RR 18
[2020-02-02 07:31] LABS: Calcium 7.9 mg/dL (8.5-10.1); Magnesium 2.2 mg/dL (1.6-2.6); Potassium 3.4 mmol/L (3.5-5.1)
[2020-02-02 07:44] LABS: Albumin 2.3 g/dL (3.4-5.0); BUN/Creatinine Ratio 36.6; Bilirubin, Total 0.8 mg/dL (0.2-1.0); CRP High Sensitivity 1.28 mg/dL (< 0.3); Phosphorus 2.4 mg/dL (2.5-4.90); Total Protein 5.9 g/dL (6.4-8.2)
[2020-02-02] MEDS ORDERED: POTASSIUM CHL 20MEQ/100ML 100 ML IV ONE (08:30)
[2020-02-02] MEDS: ZINC SULFATE 220mg CAP or TAB PO SCH ×2 (08:42→10:00)
[2020-02-02] MEDS: POTASSIUM EFFERVESENT TAB 25 MEQ PO SCH (08:42)
[2020-02-02] MEDS: SODIUM CHLOR 0.9% PF (SALINE LOCK) 10ML VIAL/SYR IV SCH ×2 (08:42→23:11)
[2020-02-02] MEDS: ASCORBIC ACID 500 MG TAB PO SCH ×2 (08:43→10:00)
[2020-02-02] MEDS: ENOXAPARIN SOD 80 MG/0.8ML SYRINGE SC SCH ×2 (08:43→23:11)
[2020-02-02] MEDS: THIAMINE 100mg/ml INJ (200mg/2ml VIAL) IV SCH (08:43)
[2020-02-02] MEDS: CHOLECALCIFEROL (VITD3) 1,000UNIT=25mCg TAB PO SCH ×2 (08:43→10:00)
[2020-02-02] MEDS: DexAMETHasone SOD PHOS 10MG/1ML VIAL INJ IV SCH (08:44)
[2020-02-02] MEDS: FUROSEMIDE 40 MG/4 ML VIAL IV SCH (08:44)
[2020-02-02] MEDS: amLODIPine BESYLATE 5 MG TAB PO SCH ×2 (08:44→10:00)
[2020-02-02 09:00] VITALS: BP 112/66
[2020-02-02] MEDS ORDERED: POTASSIUM PHOSP 22MEQ(15MMOLE) in NS 100 ML IV ONE (12:00)
[2020-02-02 13:00] VITALS: BP 136/67
[2020-02-02 16:40] VITALS: BP 105/74
--- NOTE | 2020-02-02 19:49 | NUR ---
open note assumed care of pt, upon entering room pt awake and alert. pt on 12 L non rebreather, no distress noted or expressed. pt oriented to this nurse, updated on plan of care. pt denies any pain. pt has peña in place, secured, below the waist draining clear yellow. pt bed locked, low and 2x rails up. call light in reach, pt denies any further needs at this time, pt encouraged to call as needed. this nurse to round q1hr and prn.
[2020-02-02] MEDS: TPN PER PHARMACY IV NR ×8 (20:09)
[2020-02-02] MEDS ORDERED: TEMAZEPAM 15 MG CAP PO ONE (20:45)
[2020-02-02 22:23] VITALS: BP 119/89
[2020-02-03] MEDS: guaiFENesin-DM 100/10mg/5ml SYR PO SCH ×5 (02:00→17:51)
[2020-02-03 05:23] VITALS: BP 108/73
--- NOTE | 2020-02-03 06:39 | NUR ---
stool sent for c diff after third episode of liquid green stool with mucus consistency on this shift
[2020-02-03] MEDS: MEROPENEM 1GM IVPB 100 ML IV SCH ×3 (06:41→22:50)
[2020-02-03] MEDS: ACCU-CHEK COMFORT CURVE STRIP VI SCH ×4 (06:41→17:51)
[2020-02-03 07:05] LABS: Albumin 2.2 g/dL (3.4-5.0); Calcium 7.8 mg/dL (8.5-10.1); Magnesium 2.5 mg/dL (1.6-2.6); Potassium 4.1 mmol/L (3.5-5.1)
[2020-02-03 07:10] LABS: Phosphorus 2.5 mg/dL (2.5-4.90); Total Protein 5.8 g/dL (6.4-8.2)
[2020-02-03 09:00] VITALS: BP 117/80
[2020-02-03] MEDS: amLODIPine BESYLATE 5 MG TAB PO SCH (10:00)
[2020-02-03] MEDS: DexAMETHasone SOD PHOS 10MG/1ML VIAL INJ IV SCH (10:51)
[2020-02-03] MEDS: THIAMINE 100mg/ml INJ (200mg/2ml VIAL) IV SCH (10:51)
[2020-02-03] MEDS: ZINC SULFATE 220mg CAP or TAB PO SCH (10:52)
[2020-02-03] MEDS: LINEZOLID 600MG/300ML 300 ML IV SCH ×2 (10:52→21:21)
[2020-02-03] MEDS: POTASSIUM EFFERVESENT TAB 25 MEQ PO SCH (10:52)
[2020-02-03] MEDS: SODIUM CHLOR 0.9% PF (SALINE LOCK) 10ML VIAL/SYR IV SCH ×2 (10:52→22:25)
[2020-02-03] MEDS: FUROSEMIDE 40 MG/4 ML VIAL IV SCH (10:52)
[2020-02-03] MEDS: ASCORBIC ACID 500 MG TAB PO SCH (10:53)
[2020-02-03] MEDS: ENOXAPARIN SOD 80 MG/0.8ML SYRINGE SC SCH ×2 (10:53→22:48)
[2020-02-03] MEDS: CHOLECALCIFEROL (VITD3) 1,000UNIT=25mCg TAB PO SCH (10:53)
[2020-02-03] MEDS ORDERED: DEXTROSE (50%) 50ML SYRG IV SCH (12:00)
--- NOTE | 2020-02-03 12:23 | NUR ---
Nutrition Followup Note Wt: 72.5 kg Pt is COVID positive in the covid wing. Pt currently NPO with PN support @ 65 ml/hr providing 1670 kcals and 70 gm proteins 1390 NCP. pt with adequate PN support as it meets 106-125% kcals however meets only 53-74% proteins Est Energy needs: 6161-8158 kcals (17-20 kcal/kgBW), Est Protein needs: 94-117 gms/day (1.2-1.5 gm/kgBW). Will continue to monitor and reassess prn. Labs: ALB 2.2 L, CO2 34 H BUN 24 H CA 7.8 L BM: pt with 3 BM today per RN note Skin: BS 15 mod risk, full details in inpatient care manager rn note. PES: 1) Increased nutrient needs r/t pt with no PO intake aeb pt currently NPO with no diet order 2) Obesity r/t energy intake in excess of energy needs aeb 164% IBW and BMI of 32.6 kg/m2 3) Altered nutrition related lab values current/chronic medical condition aeb hypokalemia, elev RFTs, low GFR, hyperglycemia, hypocalcemia, severe hypoalbuminemia Comments: Will continue to monitor NPO status, PN tolerance skin status, pertinent labs and weight trends. F/u high 2-3 days 1) Advance PN support to meet > 75% of needs. 2) advance diet as medically feasible. 3) Continue current plan of care
[2020-02-03] MEDS: InsuLIN REG 1unit/0.01ml Soln (100units/ml) SC SCH ×2 (12:27→17:52)
[2020-02-03 13:00] VITALS: BP 121/73
--- NOTE | 2020-02-03 13:10 | NUR ---
WOUND CARE NOTE: Wound care in to see patient for reevaluation of medial sacral wound that are noted present on admission and skin integrity monitoring. Patient is resting in [facility] Unit 240B. Patient is awake, alert and able to follow simple direction. She's in no stated pain at this time. She's able to assist in turning and repositioning and her Clayton score is 15. Skin/wound assessment done with the assistance of patient's nurse, MARIELENA Tinsley. Patient just had episode of loose stools. MARIELENA Tinsley and Marielena Aldridge is cleaning patient with complete linen changed. Patient's medial sacrum at intragluteal fold continue to display 0.6x0.5cm open full thickness wound. Wounds is red with no measurable depth, vicki wound is bright, scant serous drainage noted, no odor noted. New photograph of wound are taken for reference. Cleansed wound with wound cleanser, applied Thera honey gauze to open wound area and covered medial sacral wound with Opti foam gentle dressing. Applied Z Guard cream to lower buttocks and perineum. Patient tolerated well, repositioned patient for comfort sitting on bed with head of bed elevated, redistributed pressure points with pillows . MARIELENA Tinsley at bedside RECOMMENDATION: Nursing to continue with dressing change to medial sacral wound per MD order, continue with skin/wound plan of care, continue monitoring by wound care while patient is hospitalized. Addendum: 02/03/20 at 1707 by Gabriela Cade RN Amended: Links added.
--- NOTE | 2020-02-03 15:05 | NUR ---
Titrated oxymizer to 9lpm, SPO2 93%. Pt tolerating, notified RN of changes.
[2020-02-03 17:00] VITALS: BP 115/70
--- NOTE | 2020-02-03 19:30 | NUR ---
Opening Shift Note Assumed care of patient, awake and alert. No S/S of distress/SOB or pain. Safety measures in place bed in lowest position, side rails upx2, and call light within reach. Instructed on POC and to call for assist PRN, will continue to monitor for changes Q1hr and PRN.
--- NOTE | 2020-02-03 19:33 | NUR ---
PATIENT NOTED TO HAVE SMALL AMOUNT OF RED BLOOD IN PALOMO BAG. 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 AWAITING CALL BACK.
--- NOTE | 2020-02-03 19:36 | NUR ---
SPOKE TO Caron CH REGARDING SMALL AMOUNT OF LAURA RED BLOOD IN PALOMO CATHETER. INSTRUCTED TO CONTINUE TO MONITOR AND IF IT WORSENS TO CALL BACK. WILL ENDORSE TO NIGHT RN.
[2020-02-03] MEDS: TPN PER PHARMACY IV NR ×8 (19:56)
[2020-02-03] MEDS ORDERED: TPN PER PHARMACY IV NR ×8 (20:00)
[2020-02-03 22:00] VITALS: BP 137/68
--- NOTE | 2020-02-03 22:45 | NUR ---
Patient's daughter called, password verified. Family asking for update on convalescent plasma, informed daughter infusion on hold awaiting plasma from blood bank. Family asking about mother's emotional call. Explained Paula is teary, but I spent time with her to help comfort her. Patient resting comfortable.
[2020-02-04] MEDS: ACCU-CHEK COMFORT CURVE STRIP VI SCH ×5 (00:12→23:51)
[2020-02-04] MEDS: InsuLIN REG 1unit/0.01ml Soln (100units/ml) SC SCH ×5 (00:16→23:50)
[2020-02-04] MEDS: guaiFENesin-DM 100/10mg/5ml SYR PO SCH ×5 (02:00→17:53)
--- NOTE | 2020-02-04 02:00 | NUR ---
Patient sleeping, medication not administered. Patient previously requested not to be awaken for medication administration. Patient informed RN at 0000 that if she is sleeping "Let me sleep". Will continue to monitor patient.
[2020-02-04 05:57] VITALS: BP 117/56
[2020-02-04] MEDS: MEROPENEM 1GM IVPB 100 ML IV SCH ×3 (05:57→22:14)
--- NOTE | 2020-02-04 06:27 | NUR ---
Respiratory note: POX CHECK, PT WAS AWAKE SPO2 83, RR 18, RR 18, SPO2 91% ON 15L OXYMIZER.
[2020-02-04 06:37] LABS: Basophils # (auto) 0 10 ^3/uL (0-0.2); Basophils % (auto) 0.5 % (0.0-2.0); Eosinophils # (auto) 0.1 10 ^3/uL (0-0.8); Eosinophils % (auto) 1.4 % (0.0-7.0); Hematocrit 43.7 % (36.0-46.0); Hemoglobin 14.4 g/dL (12.2-16.2); Lymphocytes # (auto) 0.7 10 ^3/uL (0.4-5.4); Lymphocytes % (auto) 9.1 % (10.0-50.0); Mean Corpuscular Hemoglobin 28.6 pg (28.0-32.0); Mean Corpuscular Volume 86.5 fL (80.0-100.0); Monocytes # (auto) 0.3 10 ^3/uL (0-1.3); Monocytes % (auto) 3.6 % (0.0-12.0); Neutrophils # (auto) 6.4 10 ^3/uL (1.6-8.6); Neutrophils % (auto) 85.4 % (37.0-80.0); Nucleated Red Blood Cells % 0.2 %; Platelet Count (auto) 328 10^3/uL (140-450); Red Blood Cells 5.05 10^6/uL (4.0-5.20); Red Cell Distribution Width 15.6 % (11.8-14.3); White Blood Cell 7.5 10^3/uL (4.4-10.8)
[2020-02-04 06:59] LABS: Albumin 2.2 g/dL (3.4-5.0); Calcium 7.8 mg/dL (8.5-10.1); Magnesium 2.6 mg/dL (1.6-2.6); Potassium 4.4 mmol/L (3.5-5.1)
[2020-02-04 07:04] LABS: BUN/Creatinine Ratio 38.5; Bilirubin, Total 1.1 mg/dL (0.2-1.0); CRP High Sensitivity 0.47 mg/dL (< 0.3); Phosphorus 2.8 mg/dL (2.5-4.90); Total Protein 5.8 g/dL (6.4-8.2)
--- NOTE | 2020-02-04 07:35 | NUR ---
Patient had BM. patient linen change. dressing change done. patient tolerated well.fall precautions in place. hod raised.
[2020-02-04 09:00] VITALS: BP 124/72
[2020-02-04] MEDS: THIAMINE 100mg/ml INJ (200mg/2ml VIAL) IV SCH (09:41)
[2020-02-04] MEDS: SODIUM CHLOR 0.9% PF (SALINE LOCK) 10ML VIAL/SYR IV SCH ×2 (09:42→22:14)
[2020-02-04] MEDS: FUROSEMIDE 40 MG/4 ML VIAL IV SCH (09:42)
[2020-02-04] MEDS: ZINC SULFATE 220mg CAP or TAB PO SCH (09:42)
[2020-02-04] MEDS: DexAMETHasone SOD PHOS 10MG/1ML VIAL INJ IV SCH (09:42)
[2020-02-04] MEDS: POTASSIUM EFFERVESENT TAB 25 MEQ PO SCH (09:43)
[2020-02-04] MEDS: ASCORBIC ACID 500 MG TAB PO SCH (09:44)
[2020-02-04] MEDS: amLODIPine BESYLATE 5 MG TAB PO SCH (09:44)
[2020-02-04] MEDS: CHOLECALCIFEROL (VITD3) 1,000UNIT=25mCg TAB PO SCH (09:44)
[2020-02-04] MEDS: ENOXAPARIN SOD 80 MG/0.8ML SYRINGE SC SCH ×2 (09:45→22:14)
[2020-02-04] MEDS: LINEZOLID 600MG/300ML 300 ML IV SCH ×2 (09:47→20:36)
--- NOTE | 2020-02-04 11:00 | NUR ---
Caron FUNG AT BEDSIDE. INFORMED OF PATIENT STATUS INCLUDING OF SWELLING IN R UPPER EXTREMITY AND BLOOD IN PALOMO CATHETER. RECEIVED NEW ORDERS.
--- NOTE | 2020-02-04 11:20 | NUR ---
Caron CH AT BEDSIDE. INFORMED OF PATIENT STATUS INCLUDING BLOOD IN URINE AND PATIENTS REPORT OF SOB. RECEIVED NEW ORDERS. SEE EMAR.
[2020-02-04] MEDS ORDERED: ALBUTEROL SULF HFA 90MCG INH 200DOSE IN SCH (14:00)
[2020-02-04] MEDS: ALPRAZolam 0.25 MG TAB PO PRN (14:41)
[2020-02-04 18:45] VITALS: BP 124/72
--- NOTE | 2020-02-04 19:35 | NUR ---
Patient had BM. patient linen change. dressing change done. patient tolerated well.fall precautions in place. hod raised.
--- NOTE | 2020-02-04 19:35 | NUR ---
Opening Shift Note Assumed care of patient, awake and alert. No S/S of distress/SOB or pain. Patient instructed on how to use IS patient verbalized understanding. Instructed on POC and to call for assist PRN, will continue to monitor for changes Q1hr and PRN. bed in low positon and call light within reach
[2020-02-04] MEDS: TPN PER PHARMACY IV NR ×9 (20:35)
[2020-02-04] MEDS: ALBUTEROL SULF HFA 90MCG INH 200DOSE IN SCH (21:37)
[2020-02-04 22:00] VITALS: BP 131/75
--- NOTE | 2020-02-04 22:24 | NUR ---
Patient had BM. patient linen change. patient repositioned. patient tolerated well.fall precautions in place. hod raised.
[2020-02-05] MEDS: guaiFENesin-DM 100/10mg/5ml SYR PO SCH ×5 (01:42→18:00)
[2020-02-05 05:00] VITALS: BP 123/73
[2020-02-05] MEDS: ACCU-CHEK COMFORT CURVE STRIP VI SCH ×3 (05:18→18:07)
[2020-02-05] MEDS: InsuLIN REG 1unit/0.01ml Soln (100units/ml) SC SCH ×3 (05:18→18:21)
[2020-02-05] MEDS: MEROPENEM 1GM IVPB 100 ML IV SCH ×3 (05:28→21:35)
[2020-02-05] MEDS: ALBUTEROL SULF HFA 90MCG INH 200DOSE IN SCH ×3 (06:28→22:22)
--- NOTE | 2020-02-05 07:04 | NUR ---
Report given to dayshift RN patient denies sob distress or pain.
[2020-02-05] MEDS: LINEZOLID 600MG/300ML 300 ML IV SCH ×2 (08:34→19:30)
[2020-02-05] MEDS: SODIUM CHLOR 0.9% PF (SALINE LOCK) 10ML VIAL/SYR IV SCH ×2 (08:34→21:36)
[2020-02-05] MEDS: THIAMINE 100mg/ml INJ (200mg/2ml VIAL) IV SCH (08:34)
[2020-02-05] MEDS: DexAMETHasone SOD PHOS 10MG/1ML VIAL INJ IV SCH (08:34)
[2020-02-05] MEDS: ZINC SULFATE 220mg CAP or TAB PO SCH (08:35)
[2020-02-05] MEDS: amLODIPine BESYLATE 5 MG TAB PO SCH (08:35)
[2020-02-05] MEDS: POTASSIUM EFFERVESENT TAB 25 MEQ PO SCH (08:35)
[2020-02-05] MEDS: ASCORBIC ACID 500 MG TAB PO SCH (08:36)
[2020-02-05] MEDS: ENOXAPARIN SOD 80 MG/0.8ML SYRINGE SC SCH ×2 (08:37→21:36)
[2020-02-05] MEDS: CHOLECALCIFEROL (VITD3) 1,000UNIT=25mCg TAB PO SCH (08:37)
[2020-02-05] MEDS: FUROSEMIDE 40 MG/4 ML VIAL IV SCH (08:38)
[2020-02-05 08:39] LABS: Potassium 3.9 mmol/L (3.5-5.1)
[2020-02-05 08:48] LABS: Albumin 2.1 g/dL (3.4-5.0); BUN/Creatinine Ratio 45.3; Bilirubin, Total 0.8 mg/dL (0.2-1.0); Calcium 7.5 mg/dL (8.5-10.1); Magnesium 2.5 mg/dL (1.6-2.6); Phosphorus 3.8 mg/dL (2.5-4.90)
[2020-02-05 10:00] VITALS: BP 113/69
--- NOTE | 2020-02-05 12:25 | NUR ---
Nutrition Followup Note Wt: 72.5 kg Pt is COVID positive in the covid wing. Pt currently NPO with PN support @ 66 ml/hr providing 1510 kcals and 90 gm proteins 1150 NCP. pt with adequate PN support as it meets 96-113% kcals however meets 76-95% proteins Est Energy needs: 8434-3794 kcals (17-20 kcal/kgBW), Est Protein needs: 94-117 gms/day (1.2-1.5 gm/kgBW). Will continue to monitor and reassess prn. Labs: GLU 126 H, BUN 24 H CA 7.5 L ALB 2.1 L BM: pt with 2 BM today per RN note Skin: BS 15 mod risk, full details in child day care provider note. PES: 1) Increased nutrient needs r/t pt with no PO intake aeb pt currently NPO with no diet order 2) Obesity r/t energy intake in excess of energy needs aeb 164% IBW and BMI of 32.6 kg/m2 3) Altered nutrition related lab values current/chronic medical condition aeb hypokalemia, elev RFTs, low GFR, hyperglycemia, hypocalcemia, severe hypoalbuminemia Comments: Will continue to monitor NPO status, PN tolerance skin status, pertinent labs and weight trends. F/u high 2-3 days 1) Advance PN support to meet > 75% of needs. 2) advance diet as medically feasible. 3) Continue current plan of care
[2020-02-05 13:00] VITALS: BP 125/64
[2020-02-05 17:00] VITALS: BP 107/67
--- NOTE | 2020-02-05 19:31 | NUR ---
Opening Shift Note Assumed care of patient, awake and alert. No S/S of distress/SOB or pain. Instructed on POC and to call for assist PRN, will continue to monitor for changes Q1hr and PRN. fall precautions in place. call light within reach bed in low position hob elevated.
[2020-02-05] MEDS: TPN PER PHARMACY IV NR ×9 (19:58)
[2020-02-05] MEDS ORDERED: TPN PER PHARMACY IV NR ×11 (20:00)
--- NOTE | 2020-02-05 21:10 | NUR ---
patient had bm. patient changed. linen changed. patient dressing change done per md order. patient tolerated well. fall precautions in place and call light within reach.
[2020-02-05] MEDS: FLUTICASONE PROP NASAL SPR 0.05 % (50MCG) 16GM EACHNOSTRI SCH (21:36)
[2020-02-05 22:00] VITALS: BP 122/72
[2020-02-05] MEDS: ALPRAZolam 0.25 MG TAB PO PRN (23:13)
[2020-02-06] MEDS: ACCU-CHEK COMFORT CURVE STRIP VI SCH ×4 (00:25→17:32)
[2020-02-06] MEDS: guaiFENesin-DM 100/10mg/5ml SYR PO SCH ×5 (02:00→17:23)
[2020-02-06 05:00] VITALS: BP 105/70
[2020-02-06] MEDS: InsuLIN REG 1unit/0.01ml Soln (100units/ml) SC SCH ×4 (05:38→17:32)
[2020-02-06] MEDS: MEROPENEM 1GM IVPB 100 ML IV SCH ×3 (05:38→22:04)
[2020-02-06 06:22] LABS: Potassium 3.9 mmol/L (3.5-5.1)
[2020-02-06 06:37] LABS: Albumin 2.2 g/dL (3.4-5.0); BUN/Creatinine Ratio 51.9; Calcium 7.6 mg/dL (8.5-10.1); Magnesium 2.4 mg/dL (1.6-2.6); Phosphorus 2.9 mg/dL (2.5-4.90); Pre Albumin 46.1 mg/dL (20.0-40.0); Total Protein 5.2 g/dL (6.4-8.2)
[2020-02-06] MEDS: ALBUTEROL SULF HFA 90MCG INH 200DOSE IN SCH ×3 (06:42→22:17)
--- NOTE | 2020-02-06 07:19 | NUR ---
REPORT GIVEN TO DAYSHIFT RN PATIENT DENIES SOB DISTRESS OR PAIN
[2020-02-06 09:00] VITALS: BP 103/53
[2020-02-06] MEDS: LINEZOLID 600MG/300ML 300 ML IV SCH ×2 (09:04→19:59)
[2020-02-06] MEDS: POTASSIUM EFFERVESENT TAB 25 MEQ PO SCH (09:09)
[2020-02-06] MEDS: DexAMETHasone SOD PHOS 10MG/1ML VIAL INJ IV SCH (09:12)
[2020-02-06] MEDS: ASCORBIC ACID 500 MG TAB PO SCH (09:22)
[2020-02-06] MEDS: ZINC SULFATE 220mg CAP or TAB PO SCH (09:23)
[2020-02-06] MEDS: ENOXAPARIN SOD 80 MG/0.8ML SYRINGE SC SCH ×2 (09:23→22:04)
[2020-02-06] MEDS: THIAMINE 100mg/ml INJ (200mg/2ml VIAL) IV SCH (09:24)
[2020-02-06] MEDS: amLODIPine BESYLATE 5 MG TAB PO SCH (09:24)
[2020-02-06] MEDS: FUROSEMIDE 40 MG/4 ML VIAL IV SCH (09:26)
[2020-02-06] MEDS: FLUTICASONE PROP NASAL SPR 0.05 % (50MCG) 16GM EACHNOSTRI SCH ×2 (09:28→22:04)
[2020-02-06] MEDS: SODIUM CHLOR 0.9% PF (SALINE LOCK) 10ML VIAL/SYR IV SCH ×2 (09:28→22:04)
[2020-02-06] MEDS: CHOLECALCIFEROL (VITD3) 1,000UNIT=25mCg TAB PO SCH (09:30)
--- NOTE | 2020-02-06 12:04 | NUR ---
AIR MATTRESS: Air mattress ordered at [facility]. DAVID 02/06/20 @ 1634 Reference #[id number]. Please call [facility] at if needed to follow up. Addendum: 02/06/20 at 1205 by Gabriela Cade RN Amended: Links added.
[2020-02-06 13:00] VITALS: BP 113/70
--- NOTE | 2020-02-06 14:55 | NUR ---
Doctor Kenndey at bedside discussing POC, patient verbalizes understanding and agrees with POC.
[2020-02-06] MEDS ORDERED: LOPERAMIDE 2 mg/15ml ORAL soln PO ONE (15:00)
[2020-02-06 17:00] VITALS: BP 104/60
--- NOTE | 2020-02-06 19:15 | NUR ---
OPENING SHIFT NOTE: Assumed care of patient. Patient alert and oriented, no s/s of SOB or distress, patient denies pain. respirations even and unlabored and O2 saturation 97% on 8L Oxymizer. Bed in lowest locked position with two side rails raised and call joiner within reach. Instructed on POC and encouraged to use call joiner for assistance, all questions and concerns addressed, patient verbalizes understanding. Will continue to monitor Q1 hr and PRN.
[2020-02-06] MEDS ORDERED: TPN PER PHARMACY IV NR ×11 (20:00)
[2020-02-06 22:00] VITALS: BP 133/71
[2020-02-06] MEDS: ALPRAZolam 0.25 MG TAB PO PRN (22:20)
[2020-02-07] MEDS: guaiFENesin-DM 100/10mg/5ml SYR PO SCH ×5 (02:00→18:22)
[2020-02-07 04:57] VITALS: BP 123/74
[2020-02-07] MEDS: MEROPENEM 1GM IVPB 100 ML IV SCH ×3 (05:35→22:20)
[2020-02-07] MEDS: InsuLIN REG 1unit/0.01ml Soln (100units/ml) SC SCH ×5 (05:36→23:55)
[2020-02-07] MEDS: ACCU-CHEK COMFORT CURVE STRIP VI SCH ×5 (05:36→23:54)
[2020-02-07] MEDS: ALBUTEROL SULF HFA 90MCG INH 200DOSE IN SCH ×3 (06:27→21:52)
[2020-02-07 07:56] LABS: Basophils # (auto) 0 10 ^3/uL (0-0.2); Basophils % (auto) 0.6 % (0.0-2.0); Eosinophils # (auto) 0 10 ^3/uL (0-0.8); Eosinophils % (auto) 0.7 % (0.0-7.0); Hematocrit 38.3 % (36.0-46.0); Hemoglobin 12.2 g/dL (12.2-16.2); Lymphocytes % (auto) 18.2 % (10.0-50.0); Mean Corpuscular Hgb Conc. 31.8 g/dL (32.0-36.0); Mean Corpuscular Volume 87.9 fL (80.0-100.0); Monocytes # (auto) 0.7 10 ^3/uL (0-1.3); Monocytes % (auto) 11.7 % (0.0-12.0); Neutrophils # (auto) 3.9 10 ^3/uL (1.6-8.6); Neutrophils % (auto) 68.8 % (37.0-80.0); Nucleated Red Blood Cells % 0.1 %; Platelet Count (auto) 187 10^3/uL (140-450); Red Blood Cells 4.36 10^6/uL (4.0-5.20); Red Cell Distribution Width 15.9 % (11.8-14.3); White Blood Cell 5.7 10^3/uL (4.4-10.8)
[2020-02-07 08:16] LABS: Albumin 2.3 g/dL (3.4-5.0); Calcium 7.8 mg/dL (8.5-10.1); Magnesium 2.2 mg/dL (1.6-2.6); Potassium 4.1 mmol/L (3.5-5.1)
[2020-02-07 08:19] LABS: BUN/Creatinine Ratio 56.5; Phosphorus 2.9 mg/dL (2.5-4.90); Total Protein 5.1 g/dL (6.4-8.2)
[2020-02-07] MEDS: LINEZOLID 600MG/300ML 300 ML IV SCH ×2 (08:24→20:14)
[2020-02-07 08:40] VITALS: BP 110/67
[2020-02-07] MEDS: amLODIPine BESYLATE 5 MG TAB PO SCH (10:00)
[2020-02-07] MEDS: ASCORBIC ACID 500 MG TAB PO SCH (10:21)
[2020-02-07] MEDS: ZINC SULFATE 220mg CAP or TAB PO SCH (10:22)
[2020-02-07] MEDS: ENOXAPARIN SOD 80 MG/0.8ML SYRINGE SC SCH ×2 (10:22→22:19)
[2020-02-07] MEDS: POTASSIUM EFFERVESENT TAB 25 MEQ PO SCH (10:22)
[2020-02-07] MEDS: CHOLECALCIFEROL (VITD3) 1,000UNIT=25mCg TAB PO SCH (10:22)
[2020-02-07] MEDS: FLUTICASONE PROP NASAL SPR 0.05 % (50MCG) 16GM EACHNOSTRI SCH ×2 (10:23→22:21)
[2020-02-07] MEDS: DexAMETHasone SOD PHOS 10MG/1ML VIAL INJ IV SCH (10:23)
[2020-02-07] MEDS: SODIUM CHLOR 0.9% PF (SALINE LOCK) 10ML VIAL/SYR IV SCH ×2 (10:23→22:19)
[2020-02-07] MEDS: FUROSEMIDE 40 MG/4 ML VIAL IV SCH (10:24)
--- NOTE | 2020-02-07 11:23 | NUR ---
Nutrition Followup Note Wt: 73.0 kg, pt wt was 73kg, consider re-weighing pt to verify 18 kg wt gain to 91.2kg. Pt is COVID positive in the covid wing. Pt currently NPO with PN support @ 74 ml/hr providing 1490 kcals and 110 gm proteins 1050 NCP. pt with adequate PN support as it meets 95-112% kcals however meets 94-117% proteins. Pt with a clear liquid diet with 75% of po intake x 1 meal 02/05 per RN note. Est Energy needs: 3983-0636 kcals (17-20 kcal/kgBW), Est Protein needs: 94-117 gms/day (1.2-1.5 gm/kgBW). Will continue to monitor and reassess prn. Labs: BUN 26H, Creat 0.46L, Alb 2.3L, Ca 7.8L, GLUC 111H BM: pt with 2 BM 02/06 per RN note Skin: BS 15 mod risk, full details in acute care nursing assistant note. PES: 1) Increased nutrient needs r/t pt with no PO intake aeb pt currently NPO with no diet order 2) Obesity r/t energy intake in excess of energy needs aeb 164% IBW and BMI of 32.6 kg/m2 3) Altered nutrition related lab values current/chronic medical condition aeb hypokalemia, elev RFTs, low GFR, hyperglycemia, hypocalcemia, severe hypoalbuminemia Comments: Will continue to monitor NPO status, PN tolerance skin status, pertinent labs and weight trends. F/u high 2-3 days 1) Continue PN support to meet > 75% of needs. 2) advance diet as medically feasible. 3) Continue current plan of care
[2020-02-07 12:59] VITALS: BP 104/84
[2020-02-07 17:09] VITALS: BP 117/69
[2020-02-07 19:13] VITALS: BP 117/69
--- NOTE | 2020-02-07 19:20 | NUR ---
Opening Shift Note Assumed care of patient, awake and alert. No S/S of distress/SOB or pain. Instructed on POC and to call for assist PRN, will continue to monitor for changes Q1hr and PRN. bed in low positon and call light within reach
[2020-02-07] MEDS ORDERED: TPN PER PHARMACY IV NR ×11 (20:00)
[2020-02-07 22:00] VITALS: BP 116/71
[2020-02-08] MEDS: guaiFENesin-DM 100/10mg/5ml SYR PO SCH ×5 (02:00→17:32)
[2020-02-08 04:46] VITALS: BP 119/68
[2020-02-08] MEDS: ACCU-CHEK COMFORT CURVE STRIP VI SCH ×3 (05:59→17:32)
[2020-02-08] MEDS: InsuLIN REG 1unit/0.01ml Soln (100units/ml) SC SCH ×3 (06:00→17:32)
[2020-02-08] MEDS: MEROPENEM 1GM IVPB 100 ML IV SCH ×3 (06:23→22:36)
[2020-02-08] MEDS: ALBUTEROL SULF HFA 90MCG INH 200DOSE IN SCH ×3 (07:05→21:11)
[2020-02-08 07:38] LABS: Albumin 2.3 g/dL (3.4-5.0); BUN/Creatinine Ratio 56.3; Magnesium 2.2 mg/dL (1.6-2.6); Potassium 4.2 mmol/L (3.5-5.1)
[2020-02-08 07:41] LABS: Bilirubin, Total 0.9 mg/dL (0.2-1.0); Phosphorus 3.1 mg/dL (2.5-4.90); Total Protein 5.3 g/dL (6.4-8.2)
[2020-02-08] MEDS: LINEZOLID 600MG/300ML 300 ML IV SCH ×2 (08:32→20:55)
[2020-02-08] MEDS: CHOLECALCIFEROL (VITD3) 1,000UNIT=25mCg TAB PO SCH (08:45)
[2020-02-08] MEDS: ZINC SULFATE 220mg CAP or TAB PO SCH (08:45)
[2020-02-08] MEDS: ENOXAPARIN SOD 80 MG/0.8ML SYRINGE SC SCH ×2 (08:45→22:39)
[2020-02-08] MEDS: ASCORBIC ACID 500 MG TAB PO SCH (08:45)
[2020-02-08] MEDS: amLODIPine BESYLATE 5 MG TAB PO SCH (08:46)
[2020-02-08] MEDS: FLUTICASONE PROP NASAL SPR 0.05 % (50MCG) 16GM EACHNOSTRI SCH ×2 (08:47→22:40)
[2020-02-08] MEDS: DexAMETHasone SOD PHOS 10MG/1ML VIAL INJ IV SCH (08:47)
[2020-02-08] MEDS: POTASSIUM EFFERVESENT TAB 25 MEQ PO SCH (08:49)
[2020-02-08] MEDS: FUROSEMIDE 40 MG/4 ML VIAL IV SCH (08:55)
[2020-02-08] MEDS: SODIUM CHLOR 0.9% PF (SALINE LOCK) 10ML VIAL/SYR IV SCH ×2 (08:56→22:36)
[2020-02-08 09:00] VITALS: BP 117/81
[2020-02-08] MEDS: ALPRAZolam 0.25 MG TAB PO PRN (09:37)
[2020-02-08] MEDS: LOPERAMIDE 2 mg/15ml ORAL soln PO PRN ×2 (11:15→21:02)
--- NOTE | 2020-02-08 12:16 | NUR ---
DOCTOR ADAN AT BEDSIDE, ORDERS RECEIVED TO D/C TPN, AND START PATIENT ON A FULL LIQUID DIET.PATIENT TAPERED DOWN TO 37ML/HR WILL CONTINUE TO MONITOR FOR SIGNS OF HYPOGLYCEMIA.
[2020-02-08 12:32] LABS: Urine Bacteria NONE SEEN /hpf (None Seen); Urine Blood 2+ /uL (Negative); Urine Specific Gravity 1.009 (1.001-1.035); Urine WBC 4 /hpf (0 - 5)
[2020-02-08 12:37] VITALS: BP 102/48
--- NOTE | 2020-02-08 13:06 | NUR ---
Pt not seen for PT tx today per RN due to increased anxiety today. Addendum: 02/08/20 at 1308 by Cash Burnett PTA Amended: Links added.
[2020-02-08 16:40] VITALS: BP 102/63
[2020-02-08] MEDS ORDERED: TPN PER PHARMACY IV NR ×11 (20:00)
--- NOTE | 2020-02-08 21:15 | NUR ---
RT NOTE PT WAS SEEN BY RT FOR MDI TX. PT TOLERATES ALBUTEROL HFA VIA SPACER WELL. PT HAS A CAN SOLDERER COUGH NOTED WITH COARSE BS. CONT ORDERED POX 87% ON 6L OXYMIZER, INCREASED TO 10L OXYMIZER WITH SATS AT 90-91% Addendum: 02/08/20 at 2116 by Lucero Al RT Amended: Links added.
[2020-02-08 22:00] VITALS: BP 124/67
[2020-02-09] VITALS (7 sets, daily range): BP systolic 98–128; BP diastolic 57–79
[2020-02-09] MEDS: guaiFENesin-DM 100/10mg/5ml SYR PO SCH ×5 (02:00→18:00)
[2020-02-09] MEDS: ACCU-CHEK COMFORT CURVE STRIP VI SCH ×5 (02:31→23:51)
[2020-02-09] MEDS: InsuLIN REG 1unit/0.01ml Soln (100units/ml) SC SCH ×5 (05:57→23:51)
[2020-02-09] MEDS: MEROPENEM 1GM IVPB 100 ML IV SCH (05:58)
[2020-02-09] MEDS: ALBUTEROL SULF HFA 90MCG INH 200DOSE IN SCH ×3 (07:16→22:07)
[2020-02-09 07:19] LABS: Potassium 4.4 mmol/L (3.5-5.1)
--- NOTE | 2020-02-09 07:20 | NUR ---
OPENING SHIFT NOTE ASSUMED CARE OF PATIENT FROM CONSTRUCTION CHECKER MARIELENA PORTILLO. PATIENT IS AWAKE, ALERT, AND ORIENTED X4. PATIENT HAS NO S/S OF DISTRESS/SOB OR PAIN. INSTRUCTED PATIENT ON POC, PATIENT VERBALIZED UNDERSTANDING. BED IS IN LOWEST POSITION WITH SIDE RAILS RAISED X2, BED WHEELS LOCKED, PALOMO IS HANGING BELOW BLADDER AND IS DRAINING DARK ANDREA URINE AND CALL LIGHT IS WITHIN REACH. WILL CONTINUE TO MONITOR.
[2020-02-09 07:25] LABS: Albumin 2.3 g/dL (3.4-5.0); BUN/Creatinine Ratio 51.6; Calcium 8.3 mg/dL (8.5-10.1); Magnesium 2.3 mg/dL (1.6-2.6)
[2020-02-09 07:28] LABS: Phosphorus 3.6 mg/dL (2.5-4.90); Total Protein 5.3 g/dL (6.4-8.2)
[2020-02-09] MEDS: FLUTICASONE PROP NASAL SPR 0.05 % (50MCG) 16GM EACHNOSTRI SCH ×2 (10:00→21:55)
[2020-02-09] MEDS: SODIUM CHLOR 0.9% PF (SALINE LOCK) 10ML VIAL/SYR IV SCH ×2 (11:07→21:55)
[2020-02-09] MEDS: amLODIPine BESYLATE 5 MG TAB PO SCH (11:08)
[2020-02-09] MEDS: ASCORBIC ACID 500 MG TAB PO SCH (11:08)
[2020-02-09] MEDS: ENOXAPARIN SOD 80 MG/0.8ML SYRINGE SC SCH (11:08)
[2020-02-09] MEDS: CHOLECALCIFEROL (VITD3) 1,000UNIT=25mCg TAB PO SCH (11:08)
--- NOTE | 2020-02-09 11:39 | NUR ---
Nutrition Followup Note Wt: 73.0 kg, pt wt was 73kg, consider re-weighing pt to verify 18 kg wt gain to 91.2kg. 02/08- pt still 91.2kg per RN note, pt received air mattress 02/05, possible air mattress added in bed scale wt. Pt with no edema per RN note Pt is COVID positive in the covid wing. Per MD order TPN DC'd. Pt diet advanced to full liquid with fair intake aeb pt with 62.5% po intake x 2 days per RN note. Will continue to monitor po intake Est Energy needs: 9717-9902 kcals (17-20 kcal/kgBW), Est Protein needs: 94-117 gms/day (1.2-1.5 gm/kgBW). Will continue to monitor and reassess prn. Labs: BUN 32H, Ca 8.3L, Alb 2.3L BM: pt with 6 BMs 02/07 per RN note. Skin: BS 15 mod risk, full details in dialysis patient care technician note. PES: Resolved,pt diet advanced to Full Liquid: 1) Increased nutrient needs r/t pt with no PO intake aeb pt currently NPO with no diet order 2) Obesity r/t energy intake in excess of energy needs aeb 164% IBW and BMI of 32.6 kg/m2 Partially resolved: 3) Altered nutrition related lab values current/chronic medical condition aeb hypokalemia, elev RFTs, low GFR, hyperglycemia, hypocalcemia, severe hypoalbuminemia Comments: Will continue to monitor po intake, skin status, pertinent labs and weight trends. F/u high 3-5 days 1) Continue to advance diet as medically feasible. 2) Continue current plan of care
--- NOTE | 2020-02-09 14:05 | NUR ---
CLOSING SHIFT NOTE ENDORSE CARE TO RELIEF MARIELENA REED. PATIENT HAS NO S/S OF DISTRESS/SOB OR PAIN AT THIS TIME.
--- NOTE | 2020-02-09 14:10 | NUR ---
RECIEVED REPORT FROM MARIELENA OLIVAS. ASSESSED PATIENT AT THIS TIME. NOTICED TOBAR RED URINE IN PALOMO BAG.
--- NOTE | 2020-02-09 14:48 | NUR ---
SPOKE TO Caron ARELLANO REGARDING PATIENT. INFORMED OF PATIENT STATUS INCLUDING BLOOD IN URINE. PER Caron DUMONT AT THIS TIME.
--- NOTE | 2020-02-09 19:20 | NUR ---
OPENING SHIFT NOTE ASSUMED CARE OF PATIENT FROM DAY SHIFT RN . PATIENT IS AWAKE, ALERT, AND ORIENTED X4. PATIENT HAS NO S/S OF DISTRESS/SOB OR PAIN. INSTRUCTED PATIENT ON POC, PATIENT VERBALIZED UNDERSTANDING. BED IS IN LOWEST POSITION WITH SIDE RAILS RAISED X2, BED WHEELS LOCKED, PALOMO IS HANGING BELOW BLADDER AND IS DRAINING DARK ANDREA URINE AND CALL LIGHT IS WITHIN REACH. WILL CONTINUE TO MONITOR.
--- NOTE | 2020-02-09 19:58 | NUR ---
POST V/S CONVALESCENT PLASMA -T98.0 HR-75 RR-19 O2-93% B/P-108/64
[2020-02-10] MEDS: guaiFENesin-DM 100/10mg/5ml SYR PO SCH ×5 (02:00→17:38)
[2020-02-10] MEDS: InsuLIN REG 1unit/0.01ml Soln (100units/ml) SC SCH ×3 (05:22→17:39)
[2020-02-10] MEDS: ACCU-CHEK COMFORT CURVE STRIP VI SCH ×3 (05:22→17:39)
[2020-02-10] MEDS: ALBUTEROL SULF HFA 90MCG INH 200DOSE IN SCH ×3 (07:06→21:37)
--- NOTE | 2020-02-10 07:15 | NUR ---
OPENING SHIFT NOTE ASSUMED CARE OF PATIENT FROM ULTIMATE HOOPS REFEREE MARIELENA PORTILLO. PATIENT IS AWAKE, ALERT, AND ORIENTED X4. PATIENT HAS NO S/S OF DISTRESS/SOB OR PAIN. INSTRUCTED PATIENT ON POC, PATIENT VERBALIZED UNDERSTANDING. BED IS IN LOWEST POSITION WITH SIDE RAILS RAISED X2, BED WHEELS LOCKED, PALOMO IS HANGING BELOW BLADDER AND IS DRAINING DARK ANDREA URINE AND CALL LIGHT IS WITHIN REACH. WILL CONTINUE TO MONITOR.
[2020-02-10 07:29] LABS: Basophils # (auto) 0 10 ^3/uL (0-0.2); Basophils % (auto) 0.4 % (0.0-2.0); Eosinophils # (auto) 0.1 10 ^3/uL (0-0.8); Eosinophils % (auto) 2.9 % (0.0-7.0); Hematocrit 34.2 % (36.0-46.0); Hemoglobin 10.9 g/dL (12.2-16.2); Lymphocytes # (auto) 0.9 10 ^3/uL (0.4-5.4); Lymphocytes % (auto) 30.7 % (10.0-50.0); Mean Corpuscular Hemoglobin 28.4 pg (28.0-32.0); Mean Corpuscular Hgb Conc. 31.9 g/dL (32.0-36.0); Mean Corpuscular Volume 89.1 fL (80.0-100.0); Monocytes # (auto) 0.5 10 ^3/uL (0-1.3); Monocytes % (auto) 16.6 % (0.0-12.0); Neutrophils # (auto) 1.4 10 ^3/uL (1.6-8.6); Neutrophils % (auto) 49.4 % (37.0-80.0); Platelet Count (auto) 127 10^3/uL (140-450); Red Blood Cells 3.84 10^6/uL (4.0-5.20); Red Cell Distribution Width 15.8 % (11.8-14.3); White Blood Cell 2.9 10^3/uL (4.4-10.8)
[2020-02-10 09:18] VITALS: BP 111/53
[2020-02-10] MEDS: ASCORBIC ACID 500 MG TAB PO SCH (10:00)
[2020-02-10] MEDS: amLODIPine BESYLATE 5 MG TAB PO SCH (10:01)
[2020-02-10] MEDS: CHOLECALCIFEROL (VITD3) 1,000UNIT=25mCg TAB PO SCH (10:01)
[2020-02-10] MEDS: SODIUM CHLOR 0.9% PF (SALINE LOCK) 10ML VIAL/SYR IV SCH ×2 (10:01→21:42)
[2020-02-10] MEDS: FLUTICASONE PROP NASAL SPR 0.05 % (50MCG) 16GM EACHNOSTRI SCH ×2 (10:01→21:42)
--- NOTE | 2020-02-10 12:55 | NUR ---
WOUND CARE NOTE: Wound care in to see patient for reevaluation of sacral/intragluteal fold wound that are noted present on admission and skin integrity monitoring. Patient continue resting on air mattress in Rm 240B. Patient is awake, alert and oriented. She's in no stated pain at this time and she appears to be in no pain using Saba Seth Faces pain Scale. She's able to assist in turning and repositioning and her Clayton score is 12. Skin/wound assessment done with the assistance of covering nurse, MARIELENA Peña. Patient's tiny pressure injury to posterior medial sacrum at intragluteal fold is now closed with pink scar tissue. Patient continue having diarrhea and she developed moisture associated dermatitis /skin damage to lower buttocks, groin and perineum. Letha care given , new photograph taken for reference and applied Z Guard cream to patient's sacral,buttocks and groin area. Repositioned patient for comfort facing her Rt side, redistributed pressure points with pillows . Patient tolerated well. MARIELENA Peña at bedside. RECOMMENDATION: Continuation of all wound care orders MD prescribed, continue with skin/wound plan of care, frequent letha care/check, keep clean and dry, continue monitoring by wound care while patient is hospitalized. Addendum: 02/10/20 at 1651 by Gabriela Cade RN Amended: Links added.
[2020-02-10 13:20] VITALS: BP 117/60
[2020-02-10] MEDS ORDERED: POTASSIUM EFFERVESENT TAB 25 MEQ PO ONE (16:00)
[2020-02-10] MEDS ORDERED: FUROSEMIDE 40 MG/4 ML VIAL IV ONE (16:00)
[2020-02-10 17:02] VITALS: BP 111/68
[2020-02-10] MEDS ORDERED: IOHEXOL 300 MG/ML 100ML BOTTLE IJ ONE (18:20)
[2020-02-10 18:29] VITALS: BP 111/68
--- NOTE | 2020-02-10 18:46 | NUR ---
PATIENT TAKEN DOWN TO CT VIA GURNEY. PATIENT ON 10 L OXYMIZER AND IS SATURATING AT 96%
--- NOTE | 2020-02-10 19:03 | NUR ---
CLOSING SHIFT NOTE PATIENT HAS NO S/S OF DISTRESS/SOB OR PAIN AT THIS TIME. WILL ENDORSE CARE TO LAP REGULATOR RN.
--- NOTE | 2020-02-10 20:28 | NUR ---
ASSESSMENT NOTE Patient is A&O x4. Currently on 10L via Oxymizer, with noted moist cough and bilateral expiratory crackles. Patient reports improving SOB while at rest. denies pain at this time. Double lumen PICC line in right upper arm is intact and patent. Both lumens flushed with 10ml NS. Dressing changed last on 02/07/20. Quiroz catheter in place and patent. Tubing is free from kinks and collection bag is hung below the level of the bladder. Patient turned to right side and positioned with pillows to offset pressure. Patient cleaned, barrier cream applied and CHUX changed. Bed is in low locked position with side rails up x2. call light is within reach and patient encouraged to call for assistance when needed. Will continue to monitor for changes PRN.
[2020-02-10 21:54] VITALS: BP 102/54
--- NOTE | 2020-02-10 22:08 | NUR ---
RUBIN-CARE Patient cleansed of BM. Catheter care provided. Barrier cream applied Draw sheet and CHUX changed. Patient placed in clean down and positioned with HOB >30. Bed is in low locked position with side rails up x2. Call light is within reach and patient encouraged to call for assistance when needed. Will continue to monitor.
--- NOTE | 2020-02-10 22:59 | NUR ---
FAMILY received call from patient's daughter. Verified password and provided update.
[2020-02-11] MEDS: ACCU-CHEK COMFORT CURVE STRIP VI SCH ×4 (00:05→18:18)
[2020-02-11] MEDS: guaiFENesin-DM 100/10mg/5ml SYR PO SCH ×5 (02:00→18:21)
--- NOTE | 2020-02-11 05:12 | NUR ---
BLOOD DRAW Patient Identity verified. Positioned supine with right arm extended. Using clean technique, red PICC port cleansed with alcohol and flushed with 10ml NS. 10ml blood removed and wasted. Connection cap removed. 12ml blood drawn and given to Millie for lab. New connection cap primed with NS and attached to red lumen. Flushed with 10ml NS. Patient tolerated well. No s/s of infection or irritation noted. Bruising around at PICC insertion site noted. Patient repositioned. HOB elevated and call light left within reach.
[2020-02-11 05:29] VITALS: BP 116/80
[2020-02-11] MEDS: InsuLIN REG 1unit/0.01ml Soln (100units/ml) SC SCH ×4 (06:00→18:00)
[2020-02-11 06:01] LABS: Hematocrit 34.6 % (36.0-46.0); Hemoglobin 11.3 g/dL (12.2-16.2); Mean Corpuscular Hemoglobin 28.5 pg (28.0-32.0); Mean Corpuscular Hgb Conc. 32.6 g/dL (32.0-36.0); Mean Corpuscular Volume 87.4 fL (80.0-100.0); Platelet Count (auto) 150 10^3/uL (140-450); Red Blood Cells 3.96 10^6/uL (4.0-5.20); Red Cell Distribution Width 16.2 % (11.8-14.3); White Blood Cell 3.1 10^3/uL (4.4-10.8)
[2020-02-11 06:08] LABS: Basophils % (manual) 0 (0.0-2.0); Blast Cells 0; Metamyelocytes % 0; Myelocytes % 0; Promyelocytes % 0; Reactive Lymphocytes 0
[2020-02-11 06:17] LABS: CRP High Sensitivity 0.05 mg/dL (< 0.3)
[2020-02-11 06:19] LABS: BUN/Creatinine Ratio 43.4
[2020-02-11 06:48] LABS: Band Neutrophils % (manual) 2; Eosinophils % (manual) 5 (0-7); Lymphocytes % (manual) 29 (10.0-50.0); Monocytes % (manual) 22 (0-12)
[2020-02-11] MEDS: ALBUTEROL SULF HFA 90MCG INH 200DOSE IN SCH ×3 (07:05→22:35)
--- NOTE | 2020-02-11 07:10 | NUR ---
OPENING SHIFT NOTE ASSUMED CARE OF PATIENT FROM DISH TECHNICIAN RN ELENA. PATIENT IS AWAKE, ALERT, AND ORIENTED X4. PATIENT HAS NO S/S OF DISTRESS/SOB OR PAIN. INSTRUCTED PATIENT ON POC, PATIENT VERBALIZED UNDERSTANDING. BED IS IN LOWEST POSITION WITH SIDE RAILS RAISED X2, BED WHEELS LOCKED, PALOMO IS HANGING BELOW BLADDER AND IS DRAINING LIGHT ANDREA URINE AND CALL LIGHT IS WITHIN REACH. WILL CONTINUE TO MONITOR.
[2020-02-11 08:52] VITALS: BP 117/79
[2020-02-11] MEDS: FLUTICASONE PROP NASAL SPR 0.05 % (50MCG) 16GM EACHNOSTRI SCH ×2 (10:00→22:36)
[2020-02-11] MEDS: CHOLECALCIFEROL (VITD3) 1,000UNIT=25mCg TAB PO SCH (10:32)
[2020-02-11] MEDS: POTASSIUM EFFERVESENT TAB 25 MEQ PO SCH (10:33)
[2020-02-11] MEDS: amLODIPine BESYLATE 5 MG TAB PO SCH (10:33)
[2020-02-11] MEDS: SODIUM CHLOR 0.9% PF (SALINE LOCK) 10ML VIAL/SYR IV SCH ×2 (10:33→22:00)
[2020-02-11] MEDS: ASCORBIC ACID 500 MG TAB PO SCH (10:34)
[2020-02-11] MEDS: FUROSEMIDE 40 MG/4 ML VIAL IV SCH (10:34)
[2020-02-11] MEDS: LOPERAMIDE 2 mg/15ml ORAL soln PO PRN ×2 (10:34→12:23)
--- NOTE | 2020-02-11 11:50 | NUR ---
SPOKE WITH DR. WEBER. UPDATED MD ON PATIENT'S STATUS INCLUDING CT SCAN. MD IS AWARE. NO NEW ORDERS GIVEN.
[2020-02-11 13:01] VITALS: BP 121/71
[2020-02-11 16:58] VITALS: BP 135/88
--- NOTE | 2020-02-11 18:51 | NUR ---
CLOSING SHIFT NOTE PATIENT HAS NO S/S OF DISTRESS/SOB OR PAIN AT THIS TIME. WILL ENDORSE CARE TO GEOMETRY PROFESSOR RN.
--- NOTE | 2020-02-11 19:30 | NUR ---
OPENING SHIFT NOTE Patient is A&O x4. Currently on 6L via Oxymizer, with noted moist cough. Patient reports improving SOB while at rest. denies pain at this time. Double lumen PICC line in right upper arm is intact and patent. Both lumens flushed with 10ml NS. Dressing changed last on 02/07/20. Quiroz catheter in place and patent. Tubing is free from kinks and collection bag is hung below the level of the bladder. Urinary output is light isaias in color with noted sediment. is aware, Dr. Pfeiffer, urologist is following. Bed is in low locked position with side rails up x2. call light is within reach and patient encouraged to call for assistance when needed. Will continue to monitor for changes PRN.
[2020-02-11 21:49] VITALS: BP 113/69
[2020-02-12] MEDS: guaiFENesin-DM 100/10mg/5ml SYR PO SCH ×5 (02:00→17:22)
[2020-02-12 05:00] VITALS: BP 120/67
[2020-02-12] MEDS: ACCU-CHEK COMFORT CURVE STRIP VI SCH ×3 (06:00→11:53)
[2020-02-12] MEDS: InsuLIN REG 1unit/0.01ml Soln (100units/ml) SC SCH ×3 (06:00→12:00)
[2020-02-12 06:20] LABS: Hematocrit 34.5 % (36.0-46.0); Hemoglobin 11.4 g/dL (12.2-16.2); Mean Corpuscular Hemoglobin 28.9 pg (28.0-32.0); Mean Corpuscular Volume 87.5 fL (80.0-100.0); Platelet Count (auto) 142 10^3/uL (140-450); Red Blood Cells 3.94 10^6/uL (4.0-5.20); Red Cell Distribution Width 16.2 % (11.8-14.3)
[2020-02-12 06:24] LABS: Band Neutrophils % (manual) 0; Basophils % (manual) 0 (0.0-2.0); Blast Cells 0; Myelocytes % 0; Promyelocytes % 0; Reactive Lymphocytes 0
[2020-02-12 06:43] LABS: Calcium 8.4 mg/dL (8.5-10.1); Potassium 3.9 mmol/L (3.5-5.1)
[2020-02-12] MEDS: ALBUTEROL SULF HFA 90MCG INH 200DOSE IN SCH ×3 (06:49→22:35)
--- NOTE | 2020-02-12 07:25 | NUR ---
OPENING SHIFT NOTE ASSUMED CARE OF PATIENT FROM MEDICAL EDUCATION COORDINATOR RN ELENA. PATIENT IS AWAKE, ALERT, AND ORIENTED X4. PATIENT HAS NO S/S OF DISTRESS/SOB OR PAIN. INSTRUCTED PATIENT ON POC, PATIENT VERBALIZED UNDERSTANDING. BED IS IN LOWEST POSITION WITH SIDE RAILS RAISED X2, BED WHEELS LOCKED, PALOMO IS HANGING BELOW BLADDER AND IS DRAINING LIGHT ANDREA URINE AND CALL LIGHT IS WITHIN REACH. WILL CONTINUE TO MONITOR.
[2020-02-12 08:55] LABS: Eosinophils % (manual) 5 (0-7); Lymphocytes % (manual) 31 (10.0-50.0); Metamyelocytes % 2; Monocytes % (manual) 16 (0-12)
[2020-02-12 09:00] VITALS: BP 122/69
[2020-02-12] MEDS: CHOLECALCIFEROL (VITD3) 1,000UNIT=25mCg TAB PO SCH (09:17)
[2020-02-12] MEDS: POTASSIUM EFFERVESENT TAB 25 MEQ PO SCH (09:17)
[2020-02-12] MEDS: FUROSEMIDE 40 MG/4 ML VIAL IV SCH (09:18)
[2020-02-12] MEDS: ASCORBIC ACID 500 MG TAB PO SCH (09:18)
[2020-02-12] MEDS: amLODIPine BESYLATE 5 MG TAB PO SCH (09:18)
[2020-02-12] MEDS: SODIUM CHLOR 0.9% PF (SALINE LOCK) 10ML VIAL/SYR IV SCH ×2 (09:18→22:00)
[2020-02-12] MEDS: FLUTICASONE PROP NASAL SPR 0.05 % (50MCG) 16GM EACHNOSTRI SCH ×2 (09:19→21:32)
--- NOTE | 2020-02-12 11:25 | NUR ---
Nutrition Followup Notes Pt Wt: 86.9 kg Pt is COVID positive. Pt is with a full liquid diet, with poor intake aeb ave 30% PO intake x 3 days per RN note. Will continue to monitor PO status, skin status, pertinent labs and weight trends. Will f/u in 3-5 days. Est Energy needs: 2820-4183 kcals (17-20 kcal/kgBW), Est Protein needs: 94-117 gms/day (1.2-1.5 gm/kgBW). Will continue to monitor and reassess prn. Labs: GLUC 109H, Ca 8.4L, Alb 2.3L BM: Pt had 8 BMs 02/10 per RN note. Skin: BS 13 mod risk, full details in healthcare management note. PES: Resolved,pt diet advanced to Full Liquid: 1) Increased nutrient needs r/t pt with no PO intake aeb pt currently NPO with no diet order 2) Obesity r/t energy intake in excess of energy needs aeb 164% IBW and BMI of 32.6 kg/m2 Partially resolved: 3) Altered nutrition related lab values current/chronic medical condition aeb hypokalemia, elev RFTs, low GFR, hyperglycemia, hypocalcemia, severe hypoalbuminemia Comments: Will continue to monitor po intake, skin status, pertinent labs and weight trends. F/u high 3-5 days 1) Continue to advance diet as medically feasible. 2) Continue current plan of care
[2020-02-12] MEDS: ALPRAZolam 0.25 MG TAB PO PRN (11:53)
[2020-02-12 13:16] VITALS: BP 124/69
[2020-02-12 17:12] VITALS: BP 124/60
--- NOTE | 2020-02-12 19:04 | NUR ---
CLOSING SHIFT NOTE PATIENT HAS NO S/S OF DISTRESS/SOB OR PAIN. ENDORSED CARE TO DISTANCE EDUCATION DIRECTOR MARIELENA PARKER.
--- NOTE | 2020-02-12 19:30 | NUR ---
OPENING SHIFT NOTE Assumed care of patient who is A&O x4. Currently on 6L via Oxymizer with no s/s of distress. Denies pain at this time. PICC line in right upper arm intact and patent. Each lumen flushed with 10ml NS. Floy catheter in place and patent. Tubing is free from kinks and collection bag is hung below the level of the bladder. Bed is in low locked position with side rails up x2. Call light is within reach and patient encouraged to call for assistance when needed. Will continue to monitor for changes PRN.
[2020-02-12 22:00] VITALS: BP 109/65
--- NOTE | 2020-02-12 22:00 | NUR ---
TITRATION Patient placed on NC at 3L due to saturations of 100% on 4L via Oxymizer. Patient tolerates well. Spo2 99%
[2020-02-13] MEDS: guaiFENesin-DM 100/10mg/5ml SYR PO SCH ×5 (02:00→17:35)
[2020-02-13 05:00] VITALS: BP 119/63
[2020-02-13] MEDS: ALBUTEROL SULF HFA 90MCG INH 200DOSE IN SCH ×3 (06:57→22:53)
--- NOTE | 2020-02-13 07:20 | NUR ---
OPENING SHIFT NOTE ASSUMED CARE OF PATIENT FROM INCOMING INSPECTOR RN ELENA. PATIENT IS AWAKE, ALERT, AND ORIENTED X4. PATIENT HAS NO S/S OF DISTRESS/SOB OR PAIN. INSTRUCTED PATIENT ON POC, PATIENT VERBALIZED UNDERSTANDING. BED IS IN LOWEST POSITION WITH SIDE RAILS RAISED X2, BED WHEELS LOCKED, PALOMO IS HANGING BELOW BLADDER AND IS DRAINING PINK URINE AND CALL LIGHT IS WITHIN REACH. WILL CONTINUE TO MONITOR.
[2020-02-13 07:31] LABS: Basophils # (auto) 0 10 ^3/uL (0-0.2); Basophils % (auto) 0.8 % (0.0-2.0); Eosinophils # (auto) 0.2 10 ^3/uL (0-0.8); Eosinophils % (auto) 5.2 % (0.0-7.0); Hematocrit 35.3 % (36.0-46.0); Hemoglobin 11.6 g/dL (12.2-16.2); Lymphocytes % (auto) 22.4 % (10.0-50.0); Mean Corpuscular Hemoglobin 28.6 pg (28.0-32.0); Mean Corpuscular Hgb Conc. 32.9 g/dL (32.0-36.0); Monocytes # (auto) 0.7 10 ^3/uL (0-1.3); Monocytes % (auto) 15.3 % (0.0-12.0); Neutrophils # (auto) 2.4 10 ^3/uL (1.6-8.6); Neutrophils % (auto) 56.3 % (37.0-80.0); Nucleated Red Blood Cells % 0.1 %; Platelet Count (auto) 153 10^3/uL (140-450); Red Blood Cells 4.06 10^6/uL (4.0-5.20); Red Cell Distribution Width 15.9 % (11.8-14.3); White Blood Cell 4.3 10^3/uL (4.4-10.8)
[2020-02-13 08:00] LABS: Potassium 3.6 mmol/L (3.5-5.1)
[2020-02-13 08:13] LABS: BUN/Creatinine Ratio 33.3; Calcium 8.1 mg/dL (8.5-10.1)
[2020-02-13 09:00] VITALS: BP 117/72
[2020-02-13] MEDS: FLUTICASONE PROP NASAL SPR 0.05 % (50MCG) 16GM EACHNOSTRI SCH ×2 (10:00→21:22)
[2020-02-13] MEDS: ASCORBIC ACID 500 MG TAB PO SCH (10:00)
[2020-02-13] MEDS: CHOLECALCIFEROL (VITD3) 1,000UNIT=25mCg TAB PO SCH (10:58)
[2020-02-13] MEDS: SODIUM CHLOR 0.9% PF (SALINE LOCK) 10ML VIAL/SYR IV SCH ×2 (10:58→21:22)
[2020-02-13] MEDS: POTASSIUM EFFERVESENT TAB 25 MEQ PO SCH (10:58)
[2020-02-13] MEDS: amLODIPine BESYLATE 5 MG TAB PO SCH (11:02)
[2020-02-13] MEDS: FUROSEMIDE 40 MG/4 ML VIAL IV SCH (11:02)
[2020-02-13 13:00] VITALS: BP 115/65
--- NOTE | 2020-02-13 16:00 | NUR ---
PAGED DR. RODRIGUEZ FOR CT RESULTS. AWAITING CALL BACK
--- NOTE | 2020-02-13 16:36 | NUR ---
RECEIVED CALL BACK FROM DR. RODRIGUEZ. IS AWARE OF CT RESULTS AND WILL SPEAK WITH PATIENT AND PATIENT'S DAUGHTER TRENT REGARDING RESULTS. INFORMED MD PATIENT'S URINE IS PINK TINGED. PER MD RODRIGUEZ HE WILL DO CYSTOSCOPY ONCE PATIENT HAS RECOVERED FROM COVID. INFORMED MD ARELLANO.
[2020-02-13 17:00] VITALS: BP 114/73
[2020-02-13] MEDS ORDERED: ENOXAPARIN SOD 40 MG/0.4 ML SYRINGE SC ONE (18:30)
[2020-02-13] MEDS ORDERED: DOXYCYCLINE 100 MG TAB/CAP PO ONE (18:45)
[2020-02-13] MEDS: DOXYCYCLINE 100 MG TAB/CAP PO SCH (21:22)
[2020-02-13 22:22] VITALS: BP 108/70
[2020-02-14] MEDS: guaiFENesin-DM 100/10mg/5ml SYR PO SCH ×5 (02:00→17:37)
[2020-02-14 05:28] VITALS: BP 125/77
[2020-02-14] MEDS: ALBUTEROL SULF HFA 90MCG INH 200DOSE IN SCH ×3 (07:17→22:48)
--- NOTE | 2020-02-14 07:19 | NUR ---
CLOSING SHIFT NOTE ENDORSED CARE TO DAY SHIFT RN. PATIENT HAS NO S/S OF DISTRESS/SOB OR PAIN AT THIS TIME
[2020-02-14 09:13] VITALS: BP 109/80
[2020-02-14] MEDS: amLODIPine BESYLATE 5 MG TAB PO SCH (10:00)
[2020-02-14] MEDS: FUROSEMIDE 40 MG/4 ML VIAL IV SCH (10:00)
[2020-02-14] MEDS: FLUTICASONE PROP NASAL SPR 0.05 % (50MCG) 16GM EACHNOSTRI SCH ×2 (10:05→22:48)
[2020-02-14] MEDS: POTASSIUM EFFERVESENT TAB 25 MEQ PO SCH (10:05)
[2020-02-14] MEDS: DOXYCYCLINE 100 MG TAB/CAP PO SCH ×2 (10:05→22:47)
[2020-02-14] MEDS: CHOLECALCIFEROL (VITD3) 1,000UNIT=25mCg TAB PO SCH (10:06)
[2020-02-14] MEDS: ASCORBIC ACID 500 MG TAB PO SCH (10:06)
[2020-02-14] MEDS: ENOXAPARIN SOD 40 MG/0.4 ML SYRINGE SC SCH (10:06)
[2020-02-14] MEDS: SODIUM CHLOR 0.9% PF (SALINE LOCK) 10ML VIAL/SYR IV SCH ×2 (10:07→22:47)
[2020-02-14 13:10] VITALS: BP 107/82
[2020-02-14 17:00] VITALS: BP 117/59
[2020-02-14 22:00] VITALS: BP 117/71
[2020-02-15 01:24] VITALS: BP 117/71
[2020-02-15] MEDS: guaiFENesin-DM 100/10mg/5ml SYR PO SCH ×6 (02:00→18:04)
[2020-02-15 05:00] VITALS: BP 107/65
--- NOTE | 2020-02-15 06:56 | NUR ---
CLOSING SHIFT NOTE WILL ENDORSED CARE TO DAY SHIFT RN. PATIENT HAS NO S/S OF DISTRESS/SOB OR PAIN AT THIS TIME
[2020-02-15] MEDS: ALBUTEROL SULF HFA 90MCG INH 200DOSE IN SCH ×3 (06:59→23:02)
[2020-02-15 09:00] VITALS: BP 124/70
--- NOTE | 2020-02-15 09:30 | NUR ---
Peña catheter dc'd Order to discontinue peña catheter. Peña dc'd with clean technique following deflation of balloon. Patient tolerated well with no complaints of pain. Continue care.
[2020-02-15] MEDS: FLUTICASONE PROP NASAL SPR 0.05 % (50MCG) 16GM EACHNOSTRI SCH ×2 (09:59→22:30)
[2020-02-15] MEDS: POTASSIUM EFFERVESENT TAB 25 MEQ PO SCH (10:00)
[2020-02-15] MEDS: SODIUM CHLOR 0.9% PF (SALINE LOCK) 10ML VIAL/SYR IV SCH ×2 (10:00→22:29)
[2020-02-15] MEDS: FUROSEMIDE 40 MG/4 ML VIAL IV SCH (10:00)
[2020-02-15] MEDS: CHOLECALCIFEROL (VITD3) 1,000UNIT=25mCg TAB PO SCH (10:01)
[2020-02-15] MEDS: ASCORBIC ACID 500 MG TAB PO SCH (10:01)
[2020-02-15] MEDS: amLODIPine BESYLATE 5 MG TAB PO SCH (10:01)
[2020-02-15] MEDS: ENOXAPARIN SOD 40 MG/0.4 ML SYRINGE SC SCH (10:01)
[2020-02-15] MEDS: DOXYCYCLINE 100 MG TAB/CAP PO SCH ×2 (10:01→22:29)
--- NOTE | 2020-02-15 11:28 | NUR ---
Nutrition Followup Notes Pt Wt: 86.9 kg Pt is COVID positive. Pt is with a full liquid diet, with adequate PO of 75% x 2 days per RN note. Est Energy needs: 4728-9302 kcals (17-20 kcal/kgBW), Est Protein needs: 94-117 gms/day (1.2-1.5 gm/kgBW). Will continue to monitor and reassess prn. Labs: BUN 20 H CO2 35 H CA 8.1 L BM: Pt had 1 BM per RN note. Skin: BS 12 high risk, full details in child care supervisor note. PES: Resolved,pt diet advanced to Full Liquid: 1) Increased nutrient needs r/t pt with no PO intake aeb pt currently NPO with no diet order 2) Obesity r/t energy intake in excess of energy needs aeb 164% IBW and BMI of 32.6 kg/m2 Partially resolved: 3) Altered nutrition related lab values current/chronic medical condition aeb hypokalemia, elev RFTs, low GFR, hyperglycemia, hypocalcemia, severe hypoalbuminemia Comments: Will continue to monitor po intake, skin status, pertinent labs and weight trends. F/u high 3-5 days 1) Continue to advance diet as medically feasible. 2) Continue current plan of care
--- NOTE | 2020-02-15 11:40 | NUR ---
Dr Kennedy bedside with patient
[2020-02-15 13:00] VITALS: BP 124/73
[2020-02-15 17:00] VITALS: BP 107/70
--- NOTE | 2020-02-15 17:15 | NUR ---
Covid swab Order received for Inhouse Covid swab, per lab, we are out of Inhouse swabs, and swab will be sent out. Swab collected and walked down to lab, Per La in lab, order needs to be changed to out of house covid swab. Order for covid swab carried out.
[2020-02-15 22:55] VITALS: BP 102/61
[2020-02-16] MEDS: guaiFENesin-DM 100/10mg/5ml SYR PO SCH ×3 (02:00→10:00)
[2020-02-16 05:30] VITALS: BP 109/78
--- NOTE | 2020-02-16 06:56 | NUR ---
CLOSING SHIFT NOTE WILL ENDORSED CARE TO DAY SHIFT RN. PATIENT HAS NO S/S OF DISTRESS/SOB OR PAIN AT THIS TIME
[2020-02-16] MEDS: ALBUTEROL SULF HFA 90MCG INH 200DOSE IN SCH ×3 (06:58→22:00)
--- NOTE | 2020-02-16 08:00 | NUR ---
ASSESSMENT NOTE PT IS ALERT ORIENTED X4, RESTING IN BED COMFORTABLY, HEAD OF BED ELEVATED, OXYGEN 2 L NC, PT IS ABLE VERBALIS HER NEEDS, AND SELF REPOSITION NEEDED, PT HAS A SLIGHT DELAY SPEECH, PT PUSH HER TONGUE OUT IN ORDER TO FORM HER WORDS, VERY PLEASANT, ABLE TO TELL ME EXACTLY WHAT SHE WANT, PAIN 0/10, LEFT UPPER BUTTOCK SKIN DISCOLORATION NOTED, NO DISTRESS NOTED
[2020-02-16 09:00] VITALS: BP 110/68
--- NOTE | 2020-02-16 10:00 | NUR ---
PHYSICAL THERAPY AT BED SIDE ASSITED PT TO AMBULATE 3 FEET X 3 TIMES, PT TOLERATED WELL
[2020-02-16] MEDS: FUROSEMIDE 40 MG/4 ML VIAL IV SCH (10:22)
[2020-02-16] MEDS: SODIUM CHLOR 0.9% PF (SALINE LOCK) 10ML VIAL/SYR IV SCH ×2 (10:22→22:00)
[2020-02-16] MEDS: amLODIPine BESYLATE 5 MG TAB PO SCH (10:23)
[2020-02-16] MEDS: POTASSIUM EFFERVESENT TAB 25 MEQ PO SCH (10:23)
[2020-02-16] MEDS: DOXYCYCLINE 100 MG TAB/CAP PO SCH ×2 (10:23→22:38)
[2020-02-16] MEDS: ENOXAPARIN SOD 40 MG/0.4 ML SYRINGE SC SCH (10:24)
[2020-02-16] MEDS: CHOLECALCIFEROL (VITD3) 1,000UNIT=25mCg TAB PO SCH (10:24)
[2020-02-16] MEDS: ASCORBIC ACID 500 MG TAB PO SCH (10:24)
[2020-02-16] MEDS: FLUTICASONE PROP NASAL SPR 0.05 % (50MCG) 16GM EACHNOSTRI SCH ×2 (10:25→22:00)
--- NOTE | 2020-02-16 10:30 | NUR ---
BM PT HAS BM , KEPT DRY AND CLEAN
--- NOTE | 2020-02-16 11:20 | NUR ---
DR GAMEZ AT BED SIDE FOLLOWING UP ON PT, PT ON OXYGEN 2 L NC, PT DENIES ANY NAUSEA, VOMITING OR DIARRHEA, DR GAMEZ INFORM PT THAT SHE IS GOING HOME TOMORROW WITH HOME OXYGEN AND FOLLOW UP WITH HER PRIMARY MD AN OUT PATIENT
--- NOTE | 2020-02-16 12:45 | NUR ---
FAMILY PATIENT'S DAUGHTER CALL FOR UPDATE
[2020-02-16 13:00] VITALS: BP 117/79
--- NOTE | 2020-02-16 13:00 | NUR ---
BM PT HAS A SECOND BM AFTER EATING LUNCH
--- NOTE | 2020-02-16 15:00 | NUR ---
D/C Planning Regarding social service consult for home health physical therapy and home oxygen. Contact patient daughter Tiffany . Information and choice letter was given to Tiffany for home health. Tiffany requested [facility]. Informed Tiffany clinical information will be faxed to home health agency and [facility] for the oxygen. Informed Tiffany portable will be deliver to front lobby and concentrate oxygen to home. Tiffany verbalize understanding d/c plan. Clinical information was faxed to [facility] and [facility]. Per Vashti with [facility] patient has been accepted and service will start within 24-48hrs upon d/c day. Per Peace with [facility] portable oxygen will be deliver to front lobby at 16:00 and concentrate oxygen to home.
--- NOTE | 2020-02-16 15:54 | NUR ---
re-assessment Per consult dc planning. Tiffany daughter would like to speak with . I spoke with daughter Tiffany and she infomred me she filed an appeal yesterday due to Dr Kennedy calling her to let her know patient will be discharged in 1 or 2 days. I informed Tiffany patient has no discharge yet. Tiffany informed me she will call [facility] and cancel appeal. Patient has refused SNF and wants to return home on discharge. I informed Tiffany patient will need home oxygen, home health for PT and a fww on discharge. I informed Tiffany patient has been up ambulating with PT min assist. Per Tiffany she agrees with discharge plan home with 02, home health PT and a fww. Dr Kennedy has been notified. Addendum: 02/16/20 at 1602 by Helen Schrader Amended: Links added.
[2020-02-16 16:56] VITALS: BP 104/67
--- NOTE | 2020-02-16 18:59 | NUR ---
PT CONTINUE STABLE, CONTINUE MONITORING, SITTING UP EATING DINNER
--- NOTE | 2020-02-16 19:40 | NUR ---
OPENING SHIFT NOTE Assumed care of patient who is A&O x4. Currently on 2L via NC with no s/s of distress. Denies pain at this time. PICC line in right upper arm intact and patent. Bed is in low locked position with side rails up x2. Call light is within reach and patient encouraged to call for assistance when needed. Will continue to monitor for changes PRN.
[2020-02-16 22:00] VITALS: BP 105/64
[2020-02-17 05:00] VITALS: BP 99/66
--- NOTE | 2020-02-17 05:00 | NUR ---
PICC LINE DRESSING CHANGED PICC line dressing has been changed. The patient tolerated the change well.
[2020-02-17] MEDS: ALBUTEROL SULF HFA 90MCG INH 200DOSE IN SCH ×3 (06:48→22:24)
--- NOTE | 2020-02-17 07:30 | NUR ---
Opening Shift Note Assumed care of patient, awake and alert. No S/S of distress/SOB or pain. Instructed on POC and to call for assist PRN, will continue to monitor for changes Q1hr and PRN. Fall precautions in place per safety protocol.
[2020-02-17 09:00] VITALS: BP 111/70
[2020-02-17] MEDS: SODIUM CHLOR 0.9% PF (SALINE LOCK) 10ML VIAL/SYR IV SCH ×2 (10:00→22:12)
[2020-02-17 10:57] VITALS: BP 111/70
[2020-02-17] MEDS: FUROSEMIDE 40 MG/4 ML VIAL IV SCH (11:11)
[2020-02-17] MEDS: POTASSIUM EFFERVESENT TAB 25 MEQ PO SCH (11:11)
[2020-02-17] MEDS: FLUTICASONE PROP NASAL SPR 0.05 % (50MCG) 16GM EACHNOSTRI SCH ×2 (11:11→22:00)
[2020-02-17] MEDS: ASCORBIC ACID 500 MG TAB PO SCH (11:12)
[2020-02-17] MEDS: amLODIPine BESYLATE 5 MG TAB PO SCH (11:12)
[2020-02-17] MEDS: DOXYCYCLINE 100 MG TAB/CAP PO SCH ×2 (11:12→22:12)
[2020-02-17] MEDS: CHOLECALCIFEROL (VITD3) 1,000UNIT=25mCg TAB PO SCH (11:13)
[2020-02-17] MEDS: ENOXAPARIN SOD 40 MG/0.4 ML SYRINGE SC SCH (11:13)
[2020-02-17 13:00] VITALS: BP 126/86
[2020-02-17 17:00] VITALS: BP 100/66
--- NOTE | 2020-02-17 17:24 | NUR ---
re-assessment Per consult hospital bed. MD order has been sent to [facility] [phone] fax [phone]. Waiting for reply back now. Addendum: 02/17/20 at 1725 by Helen Schrader Amended: Links added.
--- NOTE | 2020-02-17 19:25 | NUR ---
Opening Shift Note Assumed care of patient, awake and alert. No S/S of distress/SOB or pain. Bed is locked in lowest position with call light within reach. Instructed on POC and to call for assist PRN, will continue to monitor for changes Q1hr and PRN.
[2020-02-17 22:00] VITALS: BP 100/58
[2020-02-17] MEDS: ONDANSETRON HCL 4 MG/2 ML VIAL IV PRN (23:30)
--- NOTE | 2020-02-17 23:30 | NUR ---
ASSESSMENT The patient states that she felt nauseous and requested medication. Will treat with PRN Zofran.
--- NOTE | 2020-02-18 00:30 | NUR ---
REASSESSMENT The patient states that she is feeling better after receiving the Zofran. Will continue to monitor the patient's status.
[2020-02-18 05:00] VITALS: BP 111/73
[2020-02-18] MEDS: ALBUTEROL SULF HFA 90MCG INH 200DOSE IN SCH ×3 (08:07→22:07)
[2020-02-18 08:40] VITALS: BP 104/71
[2020-02-18] MEDS: FLUTICASONE PROP NASAL SPR 0.05 % (50MCG) 16GM EACHNOSTRI SCH ×2 (09:37→22:19)
[2020-02-18] MEDS: ASCORBIC ACID 500 MG TAB PO SCH (09:38)
[2020-02-18] MEDS: DOXYCYCLINE 100 MG TAB/CAP PO SCH ×2 (09:38→22:16)
[2020-02-18] MEDS: CHOLECALCIFEROL (VITD3) 1,000UNIT=25mCg TAB PO SCH (09:38)
[2020-02-18] MEDS: FUROSEMIDE 40 MG/4 ML VIAL IV SCH (09:38)
[2020-02-18] MEDS: SODIUM CHLOR 0.9% PF (SALINE LOCK) 10ML VIAL/SYR IV SCH ×2 (09:38→22:16)
[2020-02-18] MEDS: POTASSIUM EFFERVESENT TAB 25 MEQ PO SCH (09:38)
[2020-02-18] MEDS: ENOXAPARIN SOD 40 MG/0.4 ML SYRINGE SC SCH (09:39)
[2020-02-18] MEDS: amLODIPine BESYLATE 5 MG TAB PO SCH (10:00)
[2020-02-18 13:00] VITALS: BP 101/59
--- NOTE | 2020-02-18 14:18 | NUR ---
Nutrition Followup Notes Pt Wt: 86.1 kg Pt is COVID positive. Pt diet advanced to soft diet on 02/15 per MD order. Pt with a good appetite of soft diet aeb pt with 90% po intake of soft diet x2 days per RN note. Est Energy needs: [id number] kcals (17-20 kcal/kgBW), Est Protein needs: 94-117 gms/day (1.2-1.5 gm/kgBW). Will continue to monitor and reassess prn. Labs: BUN 20H, Alb 2.3L, Ca 8.1L BM: Pt had 5 BMs 02/17 per RN note. Skin: BS 20 low risk risk, full details in home care manager rn note. PES: Resolved,pt diet advanced to soft diet: 1) Increased nutrient needs r/t pt with no PO intake aeb pt currently NPO with no diet order 2) Obesity r/t energy intake in excess of energy needs aeb 164% IBW and BMI of 32.6 kg/m2 Partially resolved: 3) Altered nutrition related lab values current/chronic medical condition aeb hypokalemia, elev RFTs, low GFR, hyperglycemia, hypocalcemia, severe hypoalbuminemia Comments: Will continue to monitor po intake, skin status, pertinent labs and weight trends. F/u mod 3-5 days 1) Continue to advance diet as medically feasible. 2) Continue current plan of care
[2020-02-18 16:40] VITALS: BP 100/60
--- NOTE | 2020-02-18 19:04 | NUR ---
FARM SERVICE CONSULTANT MD Dial at bedside, aware of patient status. Per MD Dial, change Lasix IV to PO 20 MG daily. Orders read back and verified. Will cont to monitor patient.
--- NOTE | 2020-02-18 19:26 | NUR ---
Opening Shift Note Assumed care of patient after receiving report from MARIELENA Mendez. Patient is awake and alert with no S/S of distress/SOB or pain. Call light within reach, bed in lowest locked position x2 side rails, HOB semi fowlers. Instructed on POC and to call for assist PRN, will continue to monitor for changes Q1hr and PRN.
[2020-02-18 21:40] VITALS: BP 98/66
[2020-02-18] MEDS: LOPERAMIDE 2 mg/15ml ORAL soln PO PRN (22:16)
[2020-02-19 05:23] VITALS: BP 118/70
[2020-02-19] MEDS: ALBUTEROL SULF HFA 90MCG INH 200DOSE IN SCH ×3 (08:11→22:19)
[2020-02-19 08:34] LABS: BUN/Creatinine Ratio 29.9; Calcium 8.4 mg/dL (8.5-10.1)
[2020-02-19 08:39] LABS: Potassium 2.9 mmol/L (3.5-5.1)
--- NOTE | 2020-02-19 08:46 | NUR ---
Critical Lab Spoke to Amber from Lab. Patient's K is 2.9, paged MD Tate at this time, Awaiting call back at this time.
--- NOTE | 2020-02-19 08:49 | NUR ---
Hospitalist Received new orders for Potassium 40meq IV. Orders read back and verified. Will carry out new orders and cont to monitor patient.
[2020-02-19 09:00] VITALS: BP 106/63
[2020-02-19] MEDS: amLODIPine BESYLATE 5 MG TAB PO SCH (10:00)
[2020-02-19] MEDS: FUROSEMIDE 20 MG TAB PO SCH (10:00)
[2020-02-19] MEDS ORDERED: POTASSIUM CHL 20MEQ/100ML 100 ML IV ONE (10:03)
[2020-02-19] MEDS: POTASSIUM CHL 20MEQ/100ML 100 ML IV SCH ×2 (10:05→11:30)
[2020-02-19] MEDS: POTASSIUM EFFERVESENT TAB 25 MEQ PO SCH (10:05)
[2020-02-19] MEDS: SODIUM CHLOR 0.9% PF (SALINE LOCK) 10ML VIAL/SYR IV SCH ×2 (10:05→22:14)
[2020-02-19] MEDS: FLUTICASONE PROP NASAL SPR 0.05 % (50MCG) 16GM EACHNOSTRI SCH ×2 (10:05→22:14)
[2020-02-19] MEDS: CHOLECALCIFEROL (VITD3) 1,000UNIT=25mCg TAB PO SCH (10:06)
[2020-02-19] MEDS: DOXYCYCLINE 100 MG TAB/CAP PO SCH ×2 (10:06→22:14)
[2020-02-19] MEDS: ASCORBIC ACID 500 MG TAB PO SCH (10:06)
[2020-02-19] MEDS: ENOXAPARIN SOD 40 MG/0.4 ML SYRINGE SC SCH (10:08)
--- NOTE | 2020-02-19 11:30 | NUR ---
WOUND CARE NOTE: WOUND CARE IN TO SEE PATIENT FOR REEVALUATION. Patient's tiny pressure injury to posterior medial sacrum at intragluteal fold is remains closed with pink scar tissue. PATIENT'S MASD HAS RESOLVED. Photograph taken for reference. RECOMMENDATION: OBSERVE FOR CHANGE IN PATIENT'S SKIN INTEGRITY. Continue with skin/wound plan of care, frequent vicki care/check, keep clean and dry, continue monitoring by wound care while patient is hospitalized. Addendum: 02/19/20 at 1456 by YUMIKO QUINN RN RN Amended: Links added.
[2020-02-19 13:00] VITALS: BP 100/67
[2020-02-19 17:00] VITALS: BP 99/50
--- NOTE | 2020-02-19 19:07 | NUR ---
CLOSING NOTE ENDORSED REPORT TO NIGHT MARIELENA WOO. PATIENT RESTING IN BED, NO DISTRESS, SOB, OR PAIN NOTED.
[2020-02-19 21:40] VITALS: BP 94/58
[2020-02-20 04:40] VITALS: BP 112/66
[2020-02-20] MEDS: ALBUTEROL SULF HFA 90MCG INH 200DOSE IN SCH ×2 (07:13→14:33)
--- NOTE | 2020-02-20 07:55 | NUR ---
OPENING SHIFT NOTE: PATIENT RESTING IN BED, AWAKE A/OX4. ADDRESSED PATIENT CONCERNS, AND UPDATED ON PLAN OF CARE. THIS RN PLACED PATIENT ON BEDPAN PER PATIENT REQUEST, NO SACRAL REDNESS NOTED SKIN INTACT. FALL PRECAUTIONS IN PLACE, CALL LIGHT IN PATIENT'S HAND. WILL CONTINUE TO MONITOR.
[2020-02-20 08:00] VITALS: BP 99/57
[2020-02-20] MEDS ORDERED: POTASSIUM EFFERVESENT TAB 25 MEQ PO ONE (09:00)
[2020-02-20 09:17] VITALS: BP 112/66
[2020-02-20] MEDS: amLODIPine BESYLATE 5 MG TAB PO SCH (10:00)
[2020-02-20] MEDS: FUROSEMIDE 20 MG TAB PO SCH (10:00)
[2020-02-20] MEDS: SODIUM CHLOR 0.9% PF (SALINE LOCK) 10ML VIAL/SYR IV SCH (10:19)
[2020-02-20] MEDS: FLUTICASONE PROP NASAL SPR 0.05 % (50MCG) 16GM EACHNOSTRI SCH (10:19)
[2020-02-20] MEDS: POTASSIUM EFFERVESENT TAB 25 MEQ PO SCH (10:20)
[2020-02-20] MEDS: DOXYCYCLINE 100 MG TAB/CAP PO SCH (10:20)
[2020-02-20] MEDS: ASCORBIC ACID 500 MG TAB PO SCH (10:20)
[2020-02-20] MEDS: CHOLECALCIFEROL (VITD3) 1,000UNIT=25mCg TAB PO SCH (10:21)
[2020-02-20] MEDS: ENOXAPARIN SOD 40 MG/0.4 ML SYRINGE SC SCH (10:21)
[2020-02-20] MEDS ORDERED: LOPE1TAB9 PO (11:37)
[2020-02-20] MEDS ORDERED: POTASSIUM CHL 20 Meq TABLET PO ONE (11:45)
[2020-02-20 12:00] VITALS: BP 117/70
[2020-02-20 12:06] VITALS: BP 99/57
--- NOTE | 2020-02-20 14:33 | NUR ---
HOSPITAL BED AND FAMILY UPDATE: THIS RN CALLED TRENT DAUGHTER ON FILE, PASSWORD RECEIVED. TRENT INFORMED THIS RN THAT THE HOSPITAL BED FOR AT HOME WILL BE DELIVERED BETWEEN [phone] TODAY. DAUGHTER TO CONTACT ONCE IT IS DELIVERED AND ALL SET UP AND THEN SHE CAN COME FOR DISCHARGE GREENHOUSE OR NURSERY TRANSPLANTER.
--- NOTE | 2020-02-20 15:20 | NUR ---
ASSUMED CARE FROM MARIELENA OLEA. PATIENT IS AWAKE, ALERT, AND ORIENTED X4. PATIENT HAS NO S/S OF DISTRESS/SOB OR PAIN. INSTRUCTED PATIENT ON DISCHARGE PLANNING. PATIENT IS AWARE. BED IS IN LOWEST POSITION WITH SIDE RAILS RAISED X2, BED WHEELS LOCKED, AND CALL IS WITHIN REACH. WILL CONTINUE TO MONITOR.
--- NOTE | 2020-02-20 15:21 | NUR ---
CARE ENDORSED TO BRENDON PEGUERO.
--- NOTE | 2020-02-20 16:00 | NUR ---
RECEIVED CALL FROM DAUGHTER TRENT AND BED HAS BEEN DELIVERED.
[2020-02-20 17:00] VITALS: BP 107/62
--- NOTE | 2020-02-20 17:02 | NUR ---
Discharge instructions given as ordered. Encourage to follow up with PMD as instructed. All questions and concerns addressed. Patient verbalized understanding. Medication reconciliation form completed and copy given to patient. IV removed with catheter intact, pressure dressing applied. Telemetry unit returned to ICU. Patient taken to vehicle via wheelchair with all personal belongings, oxygen, walker, accompanied by staff and family member. No distress noted at time of departure.
--- NOTE | 2020-02-21 10:55 | NUR ---
re-assessment Per Destiny from [facility] bed was delivered to patients home last night 02/20/2020. Addendum: 02/21/20 at 1656 by Helen MILAN Amended: Links added.
== END 2020-02-20 17:00 | disposition home health service (06) | DRG 720 ==
LOC: EDBD 07:42 → ER 07:42 → TELE 07:43 → DOU IN ICU 01-28 06:10 → TELE-EAST 02-01 14:07
PROVIDERS: ATTEND Internal Medicine Nephrology
PROC: 5A09457 Assistance with Respiratory Ventilation, 24-96 Consecutive Hours, Continuous Positive Airway Pressure (ICD-10-PCS; principal; 2020-01-27)
PROC: XW033H5 Introduction of Tocilizumab into Peripheral Vein, Percutaneous Approach, New Technology Group 5 (ICD-10-PCS; 2020-01-28)
PROC: XW043E5 Introduction of Remdesivir Anti-infective into Central Vein, Percutaneous Approach, New Technology Group 5 (ICD-10-PCS; 2020-01-28)
PROC: 02HV33Z Insertion of Infusion Device into Superior Vena Cava, Percutaneous Approach (ICD-10-PCS; 2020-01-30)
PROC: 3E0336Z Introduction of Nutritional Substance into Peripheral Vein, Percutaneous Approach (ICD-10-PCS; 2020-01-31)
PROC: 30233K1 Transfusion of Nonautologous Frozen Plasma into Peripheral Vein, Percutaneous Approach (ICD-10-PCS; 2020-02-09)
DX: A41.89 Other specified sepsis (principal); U07.1 COVID-19; J96.21 Acute and chronic respiratory failure with hypoxia; E66.9 Obesity, unspecified; I10 Essential (primary) hypertension; R65.20 Severe sepsis without septic shock; E86.0 Dehydration; E87.0 Hyperosmolality and hypernatremia; J44.0 Chronic obstructive pulmonary disease with (acute) lower respiratory infection; E87.6 Hypokalemia; J12.89 Other viral pneumonia; E88.09 Other disorders of plasma-protein metabolism, not elsewhere classified; R31.0 Gross hematuria; J32.0 Chronic maxillary sinusitis; Z66 Do not resuscitate; Z68.32 Body mass index [BMI] 32.0-32.9, adult; Z99.11 Dependence on respirator [ventilator] status; E11.65 Type 2 diabetes mellitus with hyperglycemia; F41.9 Anxiety disorder, unspecified; Z82.49 Family history of ischemic heart disease and other diseases of the circulatory system
CPT/HCPCS: 36415; 36569; 36600; 51702; 70450; 71045; 71250; 74178; 80048; 80053; 81001; 82040; 82728; 82805; 82962; 83036; 83605; 83615; 83735; 83880; 84100; 84132; 84439; 84443; 84478; 84484; 85007; 85025; 85027; 85379; 85610; 85730; 86141; 86850; 86900; 86901; 87040; 87070; 87426; 87493; 87804; 87880; 93005; 93971; 94640; 94660; 94760; 96365; 97110; 97116; 97530; 99291; G0378; J0696; J1100; J1815; J2185; J2405; J3480; J3490; J7131

== ENCOUNTER 2024-09-23 10:53 | Emergency (ER) | payer MEDICARE, MEDICAID ==
[~2024-09-23] VITALS: Ht 160 cm; Wt 70.0 kg
[~2024-09-23 10:53] MED LIST: ALBUAER3 IN; FLUT1SPR5; FURO20TA3 PO; LOPE1TAB9 PO; POTA-264 PO; SIMV40TA18 PO; [UNRECOGNIZED DRUG - CODE] TOP
[2024-09-23 11:27] VITALS: BP 144/60; PULSE 92; RESP 20; TEMP 97.8; O2SAT 98
--- NOTE | 2024-09-23 12:07 | ED.PDOC ---
[place]. trauma (HPI) HPI Comments A 73 YEAR OLD FEMALE PRESENTS TO THE ED WITH COMPLAINT OF RIGHT KNEE PAIN AND LEFT RIB PAIN STATUS POST FALL. PATIENT STATES SHE ACCIDENTALLY FELL YESTERDAY AND LANDED ON THE CARPET. PATIENT REPORTS SHE IS NOW EXPERIENCING RIGHT KNEE PAIN AND LEFT RIB PAIN DUE TO THIS FALL INJURY. PATIENT DENIES HEAD INJURY, NECK INJURY, LOC, FEVER, CHILLS, SHORTNESS OF BREATH, CHEST PAIN, ABDOMINAL PAIN, NAUSEA, VOMITING, HEADACHE, OR OTHER COMPLAINTS. NO OTHER SYMPTOMS OR MODIFYING FACTORS AT THIS TIME. PATIENT IS ALERT, ORIENTED X 4, AND HAS STEADY GAIT. Chief Complaint: Fall Injury Time Seen by MD: 11:11 Primary Care Provider: KIM Burroughs notes: Nurses Notes, Medications, Allergies Allergies: Coded Allergies: Penicillins (Verified Allergy, Unknown, 01/27/20) Home Meds Active Scripts Loperamide HCl (Loperamide HCl) 2 Mg Tab, 2 MG PO DAILY PRN for 10 Days, #10 TAB Prov:LINDA ARELLANO MD 02/20/20 Reported Medications Albuterol Sulfate (VENTOLIN MDI) 90 Mcg Ih, 2 PUFF IN Q6HP PRN for SHORTNESS OF BREATH, INH 01/27/20 Fluticasone Propionate (Nasal) (Flonase Allergy Relief) 50 Mcg/Act Spr, 50 MCG NA PRN, SPRAY 01/27/20 Desoximetasone (Topicort) 0.25 % Oin, 1 APPLIC TOP BID PRN for PSORIASIS, #100 GRAMS 01/27/20 Simvastatin (Simvastatin) 40 Mg Tab, 40 MG PO HS for 30 Days 01/27/20 Potassium Chloride (K-Tabs) 10 Meq Tab, 10 MEQ PO DAILY, TAB 01/27/20 Furosemide (Furosemide) 20 Mg Tab, 20 MG PO DAILY, MG 01/27/20 Information Source: Patient Mode of Arrival: Ambulatory Severity: Moderate Timing: Days Duration: Since onset, Days Prehospital treatment: None Location: (R) Knee, Other (LEFT RIB PAIN) Location of laceration: None Mechanism: Fall Associated signs and symtoms: None Past Medical History PAST MEDICAL HISTORY: HTN Surgical History: Denies all surgeries ROTARY [employer]EL OV[employer]ER History: No Pertinent [employer]ENDER History Family History Family History: Reviewed,noncontributory to illness Social History Smoker: Non-Smoker Alcohol: Denies ETOH Use Drugs: Denies Drug Use Lives In: Home Constitutional: denies: chills, diaphoresis, fatigue, fever, malaise, sweats, weakness, others EENTM: denies: blurred vision, double vision, ear bleeding, ear discharge, ear drainage, ear pain, ear ringing, eye pain, eye redness, hearing loss, mouth pain, mouth swelling, nasal discharge, nose bleeding, nose congestion, nose pain, photophobia, tearing, throat pain, throat swelling, voice changes, others Respiratory: denies: cough, hemoptysis, orthopnea, SOB at rest, shortness of breath, SOB with excertion, stridor, wheezing, others Cardiovascular: denies: chest pain, dizzy spells, diaphoresis, Dyspnea on exertion, edema, irregular heart beat, left arm pain, lightheadedness, palpitations, PND, syncope, others Gastrointestinal: denies: abdomen distended, abdominal pain, blood streaked bowels, constipated, diarrhea, dysphagia, difficulty swallowing, hematemesis, melena, nausea, poor appetite, poor fluid intake, rectal bleeding, rectal pain, vomiting, others Genitourinary: denies: abnormal vagina bleeding, burning, dyspareunia, dysuria, flank pain, frequency, hematuria, incontinence, pain, , vagina discharge, urgency, others Neurological: denies: dizziness, fainting, headache, left sided numbness, left sided weakness, numbness, paresthesia, pre-existing deficit, right sided numbness, right sided weakness, seizure, speech problems, tingling, tremors, weakness, others Musculoskeletal: reports: joint pain, muscle pain (LEFT SIDE RIBS PAIN ), others (LEFT RIB PAIN, RIGHT KNEE PAIN); denies: back pain, gout, joint swelling, muscle stiffness, neck pain Integumetry: denies: bruises, change in color, change in hair/nails, dryness, laceration, lesions, lumps, rash, wounds, others Allergic/Immunocompromised: denies: Difficulty Healing, Frequent Infections, Hives, Itching, others Hematologic/Lymphatic: denies: anemia, blood clots, easy bleeding, easy bruising, swollen glands, others Endocrine: denies: excessive hunger, excessive sweating, excessive thirst, excessive urination, flushing, intolerance to cold, intolerance to heat, unexplained weight gain, unexplained weight loss, others Psychiatric: denies: anxiety, bipolar disorder, depression, hopeless, panic disorder, schizophrenia, sleepless, suicidal, others All Other Systems: Reviewed and Negative Physical Exam General Appearance: No Apparent Distress, Normal HEENT: Normal ENT Inspection, PERRL/EOMI, Pharynx Normal, TMs Normal Neck: Full Range of Motion, Non-Tender, Normal, Normal Inspection Respiratory: Chest Non-Tender, Lungs Clear, No Accessory Muscle Use, No Respiratory Distress, Normal Breath Sounds Cardiovascular: No Edema, No JVD, No Murmur, No Gallop, Normal Peripheral Pulses, Regular Rate/Rhythm Breast Exam: Deferred Gastrointestinal: No Organomegaly, Non Tender, No Pulsatile Mass, Normal Bowel Sounds, Soft Genitalia: Deferred Pelvic: Deferred Rectal: Deferred Extremities: No calf tenderness, Normal capillary refill, Normal inspection, Normal range of motion, No pedal edema, Tender (RIGHT KNEE, NO BONY TENDERNESS, SWELLING AND DEFORMITY. ) Musculoskeletal : Location: Left Apperance: Tenderness (LEFT LOWER RIBS REGION, NO REDNESS, SWELLING AND DEFORMITY. ) Neurologic: Alert, machine umbrella tipper II-XII nml as Tested, No Motor Deficits, Normal Affect, Normal Mood, No Sensory Deficits Cerebellar Function: Normal Reflexes: Normal Skin: Dry, Normal Color, Warm Peripheral Pulses: 2+ carotid (R), 2+ carotid (L) Lymphatic: No Adenopathy Was a procedure done? Was a procedure done?: No Differential Diagnosis Multiple Trauma: Fractures, Intraabdominal Injury, Pneumothorax, Abrasions, Contusion, Other (MUSCLE STRAIN, SPRAIN, INTERCOSTAL MUSCLE STRAIN) Neck Injury: N/A X-Ray, Labs, Meds, VS Vital Signs Date Time Temp Pulse Resp B/P (MAP) Pulse Ox O2 Delivery O2 Flow Rate FiO2 09/23/24 11:27 97.8 92 20 144/60 (88) 98 97.8 09/23/24 11:27 92 20 98 Room Air 09/23/24 11:11 97.8 92 20 144/60 (88) 98 97.8 EXAMINATION: XY L RIB X RAY INDICATION: FALL COMPARISON: None TECHNIQUE: Frontal view of the chest and 3 views of the left ribs history FINDINGS: No focal consolidation, pleural effusion or significant pneumothorax. Normal cardiomediastinal silhouette. No displaced left rib fracture. IMPRESSION: No acute cardiopulmonary disease. No displaced left rib fracture. ATED BY: BALTA COLE MD DICTATED DATE/TIME: 09/23/24 1250 SIGNED BY: BALTA COLE MD SIGNED DATE/TIME: 09/23/24 1250 CC: EXAM: XY R KNEE 3V XRAY CLINICAL INDICATION: FALL TECHNIQUE: XY R KNEE 3V XRAY Comparison: None FINDINGS/IMPRESSION: There is no evidence of acute fracture or dislocation. Mild right knee osteoarthritis. The alignment is anatomical. There is no radiopaque foreign body. ATED BY: BALTA COLE MD DICTATED DATE/TIME: 09/23/24 1251 SIGNED BY: BALTA COLE MD SIGNED DATE/TIME: 09/23/24 1251 CC: X-Ray, Labs, Meds, VS Comment EXTERNAL MEDICAL RECORDS REVIEWED: [NONE] INDEPENDENT HISTORIANS: [NONE] SOCIAL DETERMINANTS OF HEALTH: [NONE] LABS ORDERED: NONE REVIEWED AND INTERPRETED RESULTS: NONE IMAGING ORDERED: XR RIBS LT, XR KNEE RT TREATMENTS ORDERED: TYLENOL 1G PO PROCEDURES PERFORMED: NONE CRITICAL CARE TIME: NONE I HAVE DISCUSSED THE PATIENT WITH THE ATTENDING PHYSICIAN DR. CERVANTES AND HE AGREES WITH THE PATIENT'S PLAN OF CARE AND DISPOSITION. BASED ON HISTORY OF PRESENT ILLNESS, AND PHYSICAL EXAM, PATIENT WILL BE DISCHARGED HOME. SHARED DECISION MAKING: PATIENT INSTRUCTED TO FOLLOW UP WITH PRIMARY CARE PROVIDER IN 1-2 DAYS FOR RE-EVALUATION OF SYMPTOMS. PATIENT VERBALIZES UNDERSTANDING TO RETURN TO ED FOR NEW OR WORSENING SYMPTOMS OR IF FOLLOW UP WITH PCP CANNOT BE OBTAINED. PATIENT FEELS COMFORTABLE GOING HOME AT THIS TIME. ALL QUESTIONS ADDRESSED AT TIME OF DISCHARGE. Images Reviewed?: Images reviewed and evaluated by me Time of 1ST Reevaluation: 13:17 Reevaluation 1ST: Improved Patient Education/Counseling: Diagnosis, Treatment, Need For Follow Up Family Education/Counseling: Diagnosis, Treatment, Need For Follow Up Medical Screening: No EMC Exist At This Time Departure 1 Departure Time of Disposition: 13:17 Impression: Primary Impression: Intercostal muscle strain Qualified Codes: S29.011A - Strain of muscle and tendon of front wall of thorax, initial encounter Additional Impressions: Sprain of right knee Qualified Codes: S83.91XA - Sprain of unspecified site of right knee, initial encounter Degenerative joint disease of right knee Qualified Codes: M17.11 - Unilateral primary osteoarthritis, right knee Status post fall Disposition: 01 HOME / SELF CARE / HOMELESS Condition: Stable Additional Instructions: FOLLOW-UP WITH PCP IN 1 TO 2 DAYS. TAKE MEDICATIONS PRESCRIBED. RETURN TO ED FOR ANY NEW OR WORSENING SYMPTOMS. Written Prescriptions PT HAS PAIN MEDICATION AT HOME. Discharged With: Self, Relative Critical Care Note Critical Care Time?: No Stability Stability form required: No I personally scribed for ISI REA ([email or web address]) on 09/23/24 at 12:07. Electronically submitted by Carlos Watson ([email or web address]). I personally scribed for ISI REA ([email or web address]) on 09/23/24 at 13:15. Electronically submitted by Carlos Watson ([email or web address]). ISI REA Sep 23, 2024 12:07
[2024-09-23] MEDS: ACETAMINOPHEN 500 MG TAB or CAP PO ONE (12:18)
--- NOTE | 2024-09-23 12:53 | DVH ---
EXAM: XY R KNEE 3V XRAY CLINICAL INDICATION: FALL TECHNIQUE: XY R KNEE 3V XRAY Comparison: None FINDINGS/IMPRESSION: There is no evidence of acute fracture or dislocation. Mild right knee osteoarthritis. The alignment is anatomical. There is no radiopaque foreign body.
--- NOTE | 2024-09-23 12:53 | DVH ---
EXAMINATION: XY L RIB X RAY INDICATION: FALL COMPARISON: None TECHNIQUE: Frontal view of the chest and 3 views of the left ribs history FINDINGS: No focal consolidation, pleural effusion or significant pneumothorax. Normal cardiomediastinal silhou ette. No displaced left rib fracture. IMPRESSION: No acute cardiopulmonary disease. No displaced left rib fracture.
== END 2024-09-23 13:19 | disposition home or self-care (01) ==
LOC: ER 10:59
DX: S29.011A Strain of muscle and tendon of front wall of thorax, initial encounter (principal); S83.91XA Sprain of unspecified site of right knee, initial encounter; M17.11 Unilateral primary osteoarthritis, right knee; I10 Essential (primary) hypertension; Z79.899 Other long term (current) drug therapy; Z88.0 Allergy status to penicillin; W18.39XA Other fall on same level, initial encounter; Y93.89 Activity, other specified; Y92.89 Other specified places as the place of occurrence of the external cause; Y99.8 Other external cause status
CPT/HCPCS: 71101; 73562

== ENCOUNTER 2025-03-17 10:48 | Emergency (ER) | payer MEDICARE, MEDICAID ==
[~2025-03-17] VITALS: Ht 162.6 cm; Wt 74.0 kg
[2025-03-17] MEDS ORDERED: LORazepam 2MG/ML-1ML VIAL IV ONE (11:15)
--- NOTE | 2025-03-17 11:29 | ED.PDOC ---
GI ASSESSMENT HPI Comments 74-year-old female who comes in with chief complaint of abdominal pain which is epigastric in nature. The patient states that the symptoms started approximately three days ago and radiates towards the back. The patient denies any fever or chills. The patient has no diarrhea or dysuria. She states that the pain is a 5/10. 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 She states that the pain seems to worsen when she ambulates. The patient has no other complaints Chief Complaint: Abdominal Pain Time Seen by MD: 10:53 Primary Care Provider: KIM Reviewed Notes: Nurses Notes, Medications, Allergies (Allergies to penicillin) Allergies: Coded Allergies: Penicillins (Verified Allergy, Unknown, 01/27/20) Home Meds Active Scripts Ciprofloxacin Hcl (Cipro) 500 Mg Tab, 1 TAB PO BID, #14 TAB Prov:KARYN PEARSON MD 03/17/25 Loperamide HCl (Loperamide HCl) 2 Mg Tab, 2 MG PO DAILY PRN for 10 Days, #10 TAB Prov:LINDA ARELLANO MD 02/20/20 Reported Medications Albuterol Sulfate (VENTOLIN MDI) 90 Mcg Ih, 2 PUFF IN Q6HP PRN for SHORTNESS OF BREATH, INH 01/27/20 Fluticasone Propionate (Nasal) (Flonase Allergy Relief) 50 Mcg/Act Spr, 50 MCG NA PRN, SPRAY 01/27/20 Desoximetasone (Topicort) 0.25 % Oin, 1 APPLIC TOP BID PRN for PSORIASIS, #100 GRAMS 01/27/20 Simvastatin (Simvastatin) 40 Mg Tab, 40 MG PO HS for 30 Days 01/27/20 Potassium Chloride (K-Tabs) 10 Meq Tab, 10 MEQ PO DAILY, TAB 01/27/20 Furosemide (Furosemide) 20 Mg Tab, 20 MG PO DAILY, MG 01/27/20 Information Source: Patient, Friend Mode of Arrival: Ambulatory Timing: Days Duration: Since onset Prehospital treatment: None Quality: Aching, Cramping Vomitus: None Stool: Normal Severity: Moderate Recent: None Recent Hx of: None Pain Location: Epigastric Modifying Factors: Nothing Associated sign and symptoms: Abdominal Pain Past Medical History PAST MEDICAL HISTORY: Cancer, COPD, High Lipids, HTN Surgical History: Hysterectomy 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 MACHINE OPERATOR History Family History Family History: Family hx of heart orquidea Social History Smoker: Non-Smoker Alcohol: Denies ETOH Use Drugs: Denies Drug Use Lives In: Home Constitutional: denies: chills, diaphoresis, fatigue, fever, malaise, sweats, weakness, others EENTM: denies: blurred vision, double vision, ear bleeding, ear discharge, ear drainage, ear pain, ear ringing, eye pain, eye redness, hearing loss, mouth pain, mouth swelling, nasal discharge, nose bleeding, nose congestion, nose pain, photophobia, tearing, throat pain, throat swelling, voice changes, others Respiratory: denies: cough, hemoptysis, orthopnea, SOB at rest, shortness of breath, SOB with excertion, stridor, wheezing, others Cardiovascular: denies: chest pain, dizzy spells, diaphoresis, Dyspnea on exertion, edema, irregular heart beat, left arm pain, lightheadedness, palpitations, PND, syncope, others Gastrointestinal: reports: abdominal pain; denies: abdomen distended, blood streaked bowels, constipated, diarrhea, dysphagia, difficulty swallowing, hematemesis, melena, nausea, poor appetite, poor fluid intake, rectal bleeding, rectal pain, vomiting, others Genitourinary: denies: abnormal vagina bleeding, burning, dyspareunia, dysuria, flank pain, frequency, hematuria, incontinence, pain, , vagina discharge, urgency, others Neurological: denies: dizziness, fainting, headache, left sided numbness, left sided weakness, numbness, paresthesia, pre-existing deficit, right sided numbness, right sided weakness, seizure, speech problems, tingling, tremors, weakness, others Musculoskeletal: denies: back pain, gout, joint pain, joint swelling, muscle pain, muscle stiffness, neck pain, others Integumetry: denies: bruises, change in color, change in hair/nails, dryness, laceration, lesions, lumps, rash, wounds, others Allergic/Immunocompromised: denies: Difficulty Healing, Frequent Infections, Hives, Itching, others Hematologic/Lymphatic: denies: anemia, blood clots, easy bleeding, easy bruising, swollen glands, others Endocrine: denies: excessive hunger, excessive sweating, excessive thirst, excessive urination, flushing, intolerance to cold, intolerance to heat, un explained weight gain, unexplained weight loss, others Psychiatric: denies: anxiety, bipolar disorder, depression, hopeless, panic disorder, schizophrenia, sleepless, suicidal, others Physical Exam General Appearance: Moderate Distress HEENT: Normal ENT Inspection, Pharynx Normal, TMs Normal Neck: Full Range of Motion, Non-Tender, Normal, Normal Inspection Respiratory: Chest Non-Tender, Lungs Clear, No Accessory Muscle Use, No Respiratory Distress, Normal Breath Sounds Cardiovascular: No Edema, No JVD, No Murmur, No Gallop, Normal Peripheral Pulses, Regular Rate/Rhythm Breast Exam: Deferred Gastrointestinal: Epigastric, No Organomegaly, No Pulsatile Mass, Normal Bowel Sounds, Soft, Tenderness Genitalia: Deferred Pelvic: Deferred Rectal: Deferred Extremities: No calf tenderness, Normal capillary refill, Normal inspection, Normal range of motion, Non-tender, No pedal edema Musculoskeletal : Apperance: Normal Neurologic: Alert, hydrologic modeler II-XII nml as Tested, Motor Weakness, Normal Affect, Normal Mood, No Sensory Deficits Cerebellar Function: Normal Reflexes: Normal Skin: Dry, Normal Color, Warm Lymphatic: No Adenopathy EKG EKG : Pulse Rate (adult): 82 [place]: Normal Cardiac Rhythm: NSR Block: None ST: Nonsp Was a procedure done? Was a procedure done?: No GI differential Dx Differential Diagnosis: Bowel Obstruction, Cholangitis, Gastritis/PUD, Gastroenteritis X-Ray, Labs, Meds, VS Vital Signs Date Time Temp Pulse Resp B/P (MAP) Pulse Ox O2 Delivery O2 Flow Rate FiO2 03/17/25 11:29 82 03/17/25 11:00 82 03/17/25 10:52 99.2 83 18 135/86 95 99.2 Lab Test 03/17/25 12:48 03/17/25 12:34 03/17/25 11:35 Range/Units Troponin I High Sensitivity < 3 L 3 L </=34 ng/L Urine Color Yellow Yellow Urine Clarity Turbid H Clear Urine pH 6.0 5.0-9.0 Urine Specific [place] 1.027 1.001-1.035 Urine Protein Trace H Negative Urine Ketones Negative Negative Urine Blood Trace H Negative /uL Urine Nitrite Negative Negative Urine Bilirubin Negative Negative Urine Urobilinogen Normal Negative mg/dL Urine Leukocyte Esterase 3+ Negative /uL Urine RBC 11 0 - 4 /hpf Urine Microscopic WBC 1 0-5 /HPF Urine Squamous Epithelial Cells Few <5 /hpf Urine Bacteria None seen None Seen /hpf Urine Hyaline Casts Few 0 - 2 /lpf Urine Mucus Few None Seen Urine Yeast (Budding) Occasional None Seen /hpf Urine Glucose Normal Normal mg/dL White Blood Count 6.8 4.4-10.8 10^3/uL Red Blood Count 4.99 4.0-5.20 10^6/uL Hemoglobin 15.4 12.2-16.2 g/dL Hematocrit 45.9 36.0-46.0 % Mean Corpuscular Volume 91.9 80.0-100.0 fL Mean Corpuscular Hemoglobin 30.9 28.0-32.0 pg Mean Corpuscular Hemoglobin Concent 33.6 32.0-36.0 g/dL Red Cell Distribution Width 14.7 H 11.8-14.3 % Platelet Count 223 140-450 10^3/uL Mean Platelet Volume 9.1 6.9-10.8 fL Neutrophils (%) (Auto) 65.9 37.0-80.0 % Lymphocytes (%) (Auto) 22.1 10.0-50.0 % Monocytes (%) (Auto) 9.1 0.0-12.0 % Eosinophils (%) (Auto) 2.1 0.0-7.0 % Basophils (%) (Auto) 0.8 0.0-2.0 % Neutrophils # (Auto) 4.4 1.6-8.6 10 ^3/uL Lymphocytes # (Auto) 1.5 0.4-5.4 10 ^3/uL Monocytes # (Auto) 0.6 0-1.3 10 ^3/uL Eosinophils # (Auto) 0.1 0-0.8 10 ^3/uL Basophils # (Auto) 0.1 0-0.2 10 ^3/uL Nucleated Red Blood Cells 0.1 % Sodium Level 141 136-145 mmol/L Potassium Level 3.5 3.5-5.1 mmol/L Chloride Level 102 98-107 mmol/L Carbon Dioxide Level 29 20-31 mmol/L Anion Gap 10 5-15 Blood Urea Nitrogen 17 9-23 mg/dL Creatinine 0.93 0.550-1.02 mg/dL Glomerular Filtration Rate Calc 64 >90 mL/min BUN/Creatinine Ratio 18.3 10.0-20.0 Serum Glucose 107 H 74-106 mg/dL Calcium Level 9.1 8.7-10.4 mg/dL Total Bilirubin 1.0 0.2-1.0 mg/dL Aspartate Amino Transferase (AST) 34 13-40 U/L Alanine Aminotransferase (ALT) 31 7-40 U/L Alkaline Phosphatase 70 46-116 U/L Total Protein 7.2 5.7-8.2 g/dL Albumin 4.1 3.2-4.8 g/dL Lipase 58 H 12-53 U/L Gallbladder US indicates: No sonographic evidence of gallstones or acute cholecystitis. Evaluation is limited due to obscuration from bowel gas. The patient was given Levaquin 500 mg by mouth. The lipase is 58 The CBC and chemistry panel is within normal limits The urine test is positive for UTI so the patient is given a prescription of Cipro The patient was also given Levaquin here in the emergency department's Images Reviewed?: Images reviewed and evaluated by me Time of 1ST Reevaluation: 11:29 Reevaluation 1ST: Unchanged Patient Education/Counseling: Diagnosis, Treatment, Prognosis, Need For Follow Up Family Education/Counseling: No Family Present SEPSIS Sepsis Screen Date sepsis recognized/suspect: Mar 17, 2025 Time Sepsis recognized/suspect: 1054 Recent Procedure: No On Antibiotic Therapy: No Respiratory Rate >20: No Heart Rate >90: No Temp<36 C (96.8 F) or >38.3 C: No SBP <90 or MAP <65 mmHG: No New Acute Mental Status Change: No Is the patient on CPAP, BIPAP,: No Physician Orders Electrocardigram (03/17/25 10:51) Heplock Iv (03/17/25 11:12) Food Vendor (03/17/25 11:12) Blood Pressure (03/17/25 11:12) Pulse Oximetry (03/17/25 11:12) Gallbladder (03/17/25 11:12) Troponin-I Hs (03/17/25 14:12) Levofloxacin Tablet (Levaquin Tablet) (03/17/25 13:30) Vital Signs Date Time Temp Pulse Resp B/P (MAP) Pulse Ox O2 Delivery O2 Flow Rate FiO2 03/17/25 11:29 82 03/17/25 11:00 82 03/17/25 10:52 99.2 83 18 135/86 95 99.2 Laboratory Tests Test 03/17/25 11:35 White Blood Count 6.8 10^3/uL (4.4-10.8) Departure 1 Departure Time of Disposition: 13:22 Impression: Primary Impression: Urinary tract infection Qualified Codes: N30.00 - Acute cystitis without hematuria Disposition: HOME / SELF CARE / HOMELESS Condition: Fair e-Prescriptions Ciprofloxacin Hcl (Cipro) 500 Mg Tab 1 TAB PO BID, #14 TAB Prov: KARYN PEARSON MD 03/17/25 Discharged With: Self Critical Care Note Critical Care Time?: No Stability Stability form required: No Heart Score Heart Score: Heart Score Response (Comments) Value History N/A 0 EKG N/A 0 Age N/A 0 Risk Factors N/A 0 Troponin N/A 0 Total 0 I personally scribed for KARYN PEARSON MD ([email or web address]) on 03/17/25 at 12:11. Electronically submitted by Andrew Wong ([email or web address]). KARYN PEARSON MD Mar 17, 2025 11:29
--- NOTE | 2025-03-17 11:47 | DVH ---
INDICATION: CP TECHNIQUE: Multiple real-time sonographic images were obtained of the right upper quadrant. COMPARISON: None FINDINGS: Evaluation is limited due to obscuration from bowel gas. The liver demonstrates homogenous echotexture without focal mass lesions. The liver measures 14 cm. The common duct is not well visualized due to obscuration from bowel gas. The gallbladder is without evidence of stone or sludge. The gallbladder wall measures 3 mm and is wi thin normal limits. The right kidney measures 9.0 cm. The right kidney is normal in contour, size, and shape. The echoge nicity is normal. There is no hydronephrosis. The pancreas is not well visualized due to overlying bowel gas. IMPRESSION: No sonographic evidence of gallstones or acute cholecystitis. Evaluation is limited due to obscuratio n from bowel gas.
[2025-03-17 11:48] LABS: Hematocrit 45.9 % (36.0-46.0); Hemoglobin 15.4 g/dL (12.2-16.2); Mean Corpuscular Hemoglobin 30.9 pg (28.0-32.0); Mean Corpuscular Volume 91.9 fL (80.0-100.0); Nucleated Red Blood Cells % 0.1 %
[2025-03-17 12:09] LABS: Alanine Aminotransferase 31 U/L (7-40); Albumin 4.1 g/dL (3.2-4.8); Alkaline Phosphatase 70 U/L (46-116); Anion Gap 10 (5-15); BUN/Creatinine Ratio 18.3 (10.0-20.0); Bilirubin, Total 1.0 mg/dL (0.2-1.0); Blood Urea Nitrogen 17 mg/dL (9-23); Calcium 9.1 mg/dL (8.7-10.4); Carbon Dioxide 29 mmol/L (20-31); Chloride 102 mmol/L (98-107); Glucose 107 mg/dL (74-106); Lipase 58 U/L (12-53); Potassium 3.5 mmol/L (3.5-5.1); Sodium 141 mmol/L (136-145); Total Protein 7.2 g/dL (5.7-8.2)
[2025-03-17 13:06] LABS: Urine Budding Yeast OCCASIONAL /hpf (None Seen); Urine Protein, UAD TRACE (Negative)
[2025-03-17] MEDS ORDERED: CIPR-173 PO (13:25)
[2025-03-17] MEDS: levoFLOXacin 500 MG TAB PO ONE (13:41)
[2025-03-17 13:42] VITALS: BP 138/89; PULSE 84; RESP 16; TEMP 97.8; O2SAT 96
--- NOTE | 2025-03-17 15:02 | ECG ---
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
== END 2025-03-17 13:45 | disposition home or self-care (01) ==
LOC: ER 10:48
DX: N39.0 Urinary tract infection, site not specified (principal); Z90.710 Acquired absence of both cervix and uterus; Z88.0 Allergy status to penicillin; Z79.899 Other long term (current) drug therapy
CPT/HCPCS: 36415; 76705; 80053; 81001; 83690; 84484; 85025; 93005